=== PATIENT | female | born 1975 | race Caucasian/White ===

== ENCOUNTER 2017-03-30 20:14 | Inpatient (IN) | payer OTHER ==
[2017-03-30] MEDS ORDERED: HYDROmorphone 1 MG/ML Syringe IVPUSH ONE (21:37)
[2017-03-30] MEDS ORDERED: Ondansetron 4 MG/2 ML SDV IVPUSH ONE ×2 (21:37→22:29)
[2017-03-30] MEDS ORDERED: Sodium Chloride 0.9% 1,000 ML IV SCH (21:45)
[2017-03-30] MEDS ORDERED: Diatrizoate Meglumine/Diatrizoate Sodium 37% 120 ML Bottle PO ONE (22:48)
[2017-03-30] MEDS ORDERED: Iopamidol 612 MG/ML 150 ML Bottle IVPUSH ONE (22:48)
[2017-03-30] MEDS ORDERED: cefOXitin 2 GM in Premix Bag 1 BAG IV ONE (23:51)
[2017-03-30] MEDS ORDERED: metroNIDAZOLE/Normal Saline 500 MG in Premix Bag 1 BAG IV ONE (23:52)
--- NOTE | 2017-03-30 23:52 | EDM.PDOC ---
ED HPI GENERAL MEDICAL PROBLEM - General Chief Complaint: Abdominal Pain Stated Complaint: RIGHT SIDE PAIN Time Seen by Provider: 03/30/17 20:43 Source of Information: Reports: Patient, Family (), RN Notes Reviewed History Limitations: Reports: No Limitations - History of Present Illness INITIAL COMMENTS - FREE TEXT/NARRATIVE: The patient states that she developed right flank and far right side abdominal pain around 05:30 this morning. It came on gradually, but has been progressively getting worse. It is crampy in character. It is constant, and the patient has not identified any modifiers. The patient has not had a fever, but has had chills. She has had both nausea and emesis, but no constipation or diarrhea. No urinary symptoms. No prior similar symptoms. The patient has not tried any home treatments or remedies. No medical evaluation prior to this ED visit. The patient's last oral solid intake was around 12 Noon today. Her last oral fluid intake was around 19:00 tonight. The patient's PCP is Linda Pham. Right Lower Abdomen Pain Score (Numeric/FACES): 10 - Related Data Allergies Allergy/AdvReac Type Severity Reaction Status Date / Time No Known Allergies Allergy Verified 03/30/17 20:28 Home Meds: Home Meds Citalopram [Celexa] 20 mg PO DAILY 03/30/17 [History] traMADol [Ultram] 50 mg PO ASDIRECTED PRN 03/30/17 [History] Past Medical History Genitourinary History: Reports: Urinary Incontinence (Stress incontinence) [facility] History: Reports: Other (See Below) (Ovarian cysts) Psychiatric History: Reports: Anxiety, Depression Endocrine/Metabolic History: Reports: Obesity/BMI 30+ - Past Surgical History HEENT Surgical History: Reports: Oral Surgery ([place] teeth extraction) Female Surgical History: Reports: Section (x 1), Salpingo- Oophorectomy (right), Tubal Ligation Social & Family History - Tobacco Use Smoking Status *Q: Never Smoker Second Hand Smoke Exposure: No - Caffeine Use Caffeine Use: Reports: Coffee, Soda - Alcohol Use Alcohol Use History: No - Recreational Drug Use Recreational Drug Use: No - Living Situation & Occupation Living situation: Reports: , with Spouse Occupation: Unemployed ED ROS GENERAL - Review of Systems Review Of Systems: See Below Constitutional: Reports: No Symptoms HEENT: Reports: No Symptoms Respiratory: Reports: No Symptoms Cardiovascular: Reports: No Symptoms Endocrine: Reports: No Symptoms GI/Abdominal: Reports: No Symptoms : Reports: No Symptoms Musculoskeletal: Reports: No Symptoms Skin: Reports: No Symptoms Neurological: Reports: No Symptoms Psychiatric: Reports: No Symptoms Hematologic/Lymphatic: Reports: No Symptoms Immunologic: Reports: No Symptoms ED EXAM, GI/ABD - Physical Exam Exam: See Below Exam Limited By: No Limitations General Appearance: Alert, WD/WN, No Apparent Distress Eyes: Bilateral: Normal Appearance, EOMI Ears: Normal External Exam, Hearing Grossly Normal Nose: Normal Inspection, No Blood Throat/Mouth: Normal Inspection, Normal Lips, Normal Voice, No Airway Compromise Head: Atraumatic, Normocephalic Neck: Normal Inspection, Full Range of Motion Respiratory/Chest: No Respiratory Distress, Lungs Clear, Normal Breath Sounds, No Accessory Muscle Use Cardiovascular: Normal Peripheral Pulses, Regular Rate, Rhythm, No Gallop, No JVD, No Murmur, No Rub GI/Abdominal Exam: Normal Bowel Sounds, Soft, No Organomegaly, No Distention, No Abnormal Bruit, No Mass, Pelvis Stable, Tender (Significant tenderness in the far right abdomen. Less tender in the right upper quadrant, and even less tender in the right lower quadrant. Nontender elsewhere.), Other (Obese) (Female) Exam: Deferred Rectal (Female) Exam: Deferred Back Exam: Normal Inspection, Full Range of Motion. No: CVA Tenderness (L), CVA Tenderness (R) Extremities: Normal Inspection, Normal Range of Motion, No Pedal Edema, Normal Capillary Refill Neurological: Alert, Oriented, Normal Cognition, No Motor/Sensory Deficits Psychiatric: Normal Affect Skin Exam: Warm, Dry, Intact, Normal Color, No Rash Course - Vital Signs Last Recorded V/S: Last Vital Signs Temp 37.0 C 03/30/17 20:24 Pulse 110 H 03/30/17 20:24 Resp 18 03/30/17 20:24 BP 133/87 03/30/17 20:24 Pulse Ox 100 03/30/17 20:24 - Orders/Labs/Meds Orders: Active Orders 24 hr Category Date Time Status Abdomen Pelvis w Cont [CT] Stat Exams 03/30/17 21:38 Taken Sodium Chloride 0.9% [Normal Saline] 1,000 ml Med 03/30/17 21:45 Active IV ASDIRECTED cefOXitin [Mefoxin in Dextrose,Iso-Osm 2 GM/50 ML] 2 gm Med 03/30/17 23:51 Ordered Premix Bag 1 bag IV ONETIME metroNIDAZOLE/Normal Saline [Flagyl 500 MG in NS 100 ML Med 03/30/17 23:52 Ordered ] 500 mg Premix Bag 1 bag IV ONETIME Medication Orders Sodium Chloride (Normal Saline) 1,000 mls @ 150 mls/hr IV ASDIRECTED SANGITA Last Admin: 03/30/17 21:47 Dose: 150 mls/hr Cefoxitin Sodium 2 gm/ Premix 50 mls @ 100 mls/hr IV ONETIME ONE Stop: 03/31/17 00:20 Metronidazole 500 mg/ Premix 100 mls @ 100 mls/hr IV ONETIME ONE Stop: 03/31/17 00:51 Labs: Laboratory Tests 03/30/17 03/30/17 03/30/17 Range/Units 20:30 20:30 20:30 WBC 13.37 H (3.98-10.04) K/mm3 RBC 4.84 (3.98-5.22) M/mm3 Hgb 13.8 (11.2-15.7) gm/L Hct 41.1 (34.1-44.9) % MCV 84.9 (79.4-94.8) fl MCH 28.5 (25.6-32.2) pg MCHC 33.6 (32.2-35.5) g/dl RDW Std Deviation 40.3 (36.4-46.3) fL Plt Count 426 H (182-369) K/mm3 MPV 8.7 L (9.4-12.3) fl Neutrophils % (Manual) 78 H (40-60) % Band Neutrophils % 0 (0-10) % Lymphocytes % (Manual) 16 L (20-40) % Atypical Lymphs % 0 % Monocytes % (Manual) 5 (2-10) % Eosinophils % (Manual) 1 (0.7-5.8) % Basophils % (Manual) 0 L (0.1-1.2) Platelet Estimate Increased Plt Morphology Comment Normal RBC Morph Comment Normal Sodium 137 (136-145) mEq/L Potassium 3.9 (3.5-5.1) mEq/L Chloride 102 (98-107) mEq/L Carbon Dioxide 26 (21-32) mEq/L Anion Gap 12.9 (5-15) BUN 8 (7-18) mg/dL Creatinine 0.8 (0.55-1.02) mg/dL Est Cr Clr Drug Dosing 71.71 mL/min Estimated GFR (MDRD) > 60 (>60) mL/min BUN/Creatinine Ratio 10.0 L (14-18) Glucose 121 H (74-106) mg/dL Calcium 9.3 (8.5-10.1) mg/dL Total Bilirubin 0.4 (0.2-1.0) mg/dL AST 31 (15-37) U/L ALT 34 (14-59) U/L Alkaline Phosphatase 136 H (46-116) U/L Total Protein 8.1 (6.4-8.2) g/dl Albumin 3.9 (3.4-5.0) g/dl Globulin 4.2 gm/dL Albumin/Globulin Ratio 0.9 L (1-2) Lipase 110 (73-393) U/L Urine Color (Yellow) Urine Appearance (Clear) Urine pH (5.0-8.0) Ur Specific Ridge (1.005-1.030) Urine Protein (Negative) Urine Glucose (UA) (Negative) Urine Ketones (Negative) Urine Occult Blood (Negative) Urine Nitrite (Negative) Urine Bilirubin (Negative) Urine Urobilinogen (0.2-1.0) Ur Leukocyte Esterase (Negative) Urine RBC (0-5) /hpf Urine WBC (0-5) /hpf Ur Epithelial Cells (0-5) /hpf Urine Bacteria (FEW) /hpf Urine Mucus (FEW) /hpf Urine HCG, Qual (NEGATIVE) 03/30/17 03/30/17 Range/Units 20:55 20:55 WBC (3.98-10.04) K/mm3 RBC (3.98-5.22) M/mm3 Hgb (11.2-15.7) gm/L Hct (34.1-44.9) % MCV (79.4-94.8) fl MCH (25.6-32.2) pg MCHC (32.2-35.5) g/dl RDW Std Deviation (36.4-46.3) fL Plt Count (182-369) K/mm3 MPV (9.4-12.3) fl Neutrophils % (Manual) (40-60) % Band Neutrophils % (0-10) % Lymphocytes % (Manual) (20-40) % Atypical Lymphs % % Monocytes % (Manual) (2-10) % Eosinophils % (Manual) (0.7-5.8) % Basophils % (Manual) (0.1-1.2) Platelet Estimate Plt Morphology Comment RBC Morph Comment Sodium (136-145) mEq/L Potassium (3.5-5.1) mEq/L Chloride (98-107) mEq/L Carbon Dioxide (21-32) mEq/L Anion Gap (5-15) BUN (7-18) mg/dL Creatinine (0.55-1.02) mg/dL Est Cr Clr Drug Dosing mL/min Estimated GFR (MDRD) (>60) mL/min BUN/Creatinine Ratio (14-18) Glucose (74-106) mg/dL Calcium (8.5-10.1) mg/dL Total Bilirubin (0.2-1.0) mg/dL AST (15-37) U/L ALT (14-59) U/L Alkaline Phosphatase (46-116) U/L Total Protein (6.4-8.2) g/dl Albumin (3.4-5.0) g/dl Globulin gm/dL Albumin/Globulin Ratio (1-2) Lipase (73-393) U/L Urine Color Yellow (Yellow) Urine Appearance Clear (Clear) Urine pH 5.5 (5.0-8.0) Ur Specific [place] > or = 1.030 (1.005-1.030) Urine Protein Negative (Negative) Urine Glucose (UA) Negative (Negative) Urine Ketones Negative (Negative) Urine Occult Blood Trace-lysed H (Negative) Urine Nitrite Negative (Negative) Urine Bilirubin Negative (Negative) Urine Urobilinogen 0.2 (0.2-1.0) Ur Leukocyte Esterase Negative (Negative) Urine RBC 0-5 (0-5) /hpf Urine WBC 0-5 (0-5) /hpf Ur Epithelial Cells 30-40 H (0-5) /hpf Urine Bacteria Few (FEW) /hpf Urine Mucus Not seen (FEW) /hpf Urine HCG, Qual Negative (NEGATIVE) Meds: Medications Generic Name Dose Route Start Last Admin Trade Name Freq PRN Reason Stop Dose Admin Sodium Chloride 1,000 mls @ 150 mls/hr 03/30/17 21:45 03/30/17 21:47 Normal Saline IV 150 mls/hr ASDIRECTED SANGITA Administration Cefoxitin Sodium 2 gm/ Premix 50 mls @ 100 mls/hr 03/30/17 23:51 IV 03/31/17 00:20 ONETIME ONE Metronidazole 500 mg/ Premix 100 mls @ 100 mls/hr 03/30/17 23:52 IV 03/31/17 00:51 ONETIME ONE Discontinued Medications Generic Name Dose Route Start Last Admin Trade Name Baldev PRN Reason Stop Dose Admin Diatrizoate Meglum/Diatrizoate Sod 90 ml 03/30/17 22:48 03/30/17 23:13 Gastrografin 37% PO 03/30/17 22:49 90 ml ONETIME ONE Administration Hydromorphone HCl 1 mg 03/30/17 21:37 03/30/17 21:51 Dilaudid IVPUSH 03/30/17 21:38 1 mg ONETIME ONE Administration Iopamidol 125 ml 03/30/17 22:48 03/30/17 23:13 Isovue-300 (61%) IVPUSH 03/30/17 22:49 125 ml ONETIME ONE Administration Ondansetron HCl 4 mg 03/30/17 21:37 03/30/17 21:47 Zofran IVPUSH 03/30/17 21:38 4 mg ONETIME ONE Administration Ondansetron HCl 4 mg 03/30/17 22:29 03/30/17 22:33 Zofran IVPUSH 03/30/17 22:30 4 mg ONETIME ONE Administration - Re-Assessments/Exams Free Text/Narrative Re-Assessment/Exam: 03/30/17 23:48 CT of the abdomen and pelvis with oral and IV contrast is read by [facility] as "Appendicitis." 03/30/17 23:[address] Camacho at 23:49. He would like us to give the patient Mefoxin 2 g and Flagyl 500 mg now, and call the OR crew in. 03/30/17 23:55 The above was discussed with the patient and her . The patient is agreeable to going to the OR with Dr. Camacho. Departure - Departure Time of Disposition: 00:03 Disposition: DC/Tfer to [facility] Condition: Fair Clinical Impression: Acute appendicitis - Discharge Information - My Orders Last 24 Hours: My Active Orders 03/30/17 21:38 Abdomen Pelvis w Cont [CT] Stat 03/30/17 21:45 Sodium Chloride 0.9% [Normal Saline] 1,000 ml IV ASDIRECTED 03/30/17 23:51 cefOXitin [Mefoxin in Dextrose,Iso-Osm 2 GM/50 ML] 2 gm Premix Bag 1 bag IV ONETIME 03/30/17 23:52 metroNIDAZOLE/Normal Saline [Flagyl 500 MG in NS 100 ML] 500 mg Premix Bag 1 bag IV ONETIME - Assessment/Plan Last 24 Hours: My Active Orders 03/30/17 21:38 Abdomen Pelvis w Cont [CT] Stat 03/30/17 21:45 Sodium Chloride 0.9% [Normal Saline] 1,000 ml IV ASDIRECTED 03/30/17 23:51 cefOXitin [Mefoxin in Dextrose,Iso-Osm 2 GM/50 ML] 2 gm Premix Bag 1 bag IV ONETIME 03/30/17 23:52 metroNIDAZOLE/Normal Saline [Flagyl 500 MG in NS 100 ML] 500 mg Premix Bag 1 bag IV ONETIME
[2017-03-31] MEDS ORDERED: Lactated Ringers 1,000 ML IV SCH
[2017-03-31] MEDS ORDERED: Bupivacaine 0.5% 30 ML SDV ONE (00:14)
--- NOTE | 2017-03-31 00:17 | PCM.PREANE ---
Preanesthetic Assessment - Anesthesia/Transfusion/Family Hx Anesthesia History: Prior Anesthesia Without Reaction Type of Anesthesia Reaction: Excessive Nausea/Vomiting Family History of Anesthesia Reaction: No Transfusion History: No Prior Transfusion(s) Intubation History: Unknown - Review of Systems General: No Symptoms, Chills Pulmonary: No Symptoms Cardiovascular: No Symptoms, Palpitations (anxiety), Lightheadedness Gastrointestinal: Decreased Appetite, Diarrhea, Nausea, Vomiting Neurological: No Symptoms (motion sickness), Numbness (bilateral hands) Other: Reports: None - Physical Assessment NPO Status Date: 03/30/17 NPO Status Time: 19:00 Pulse: 110 O2 Sat by Pulse Oximetry: 100 Respiratory Rate: 18 Blood Pressure: 133/87 Temperature: 37 C Vital Signs: Last Vital Signs Temp 37.0 C 03/30/17 20:24 Pulse 110 H 03/30/17 20:24 Resp 18 03/30/17 20:24 BP 133/87 03/30/17 20:24 Pulse Ox 100 03/30/17 20:24 Height: 1.57 m Weight: 88.451 kg ASA Class: 1E Mental Status: Alert & Oriented x3 Airway Class: Mallampati = 2 Dentition: Reports: Normal Dentition, Caries Thyro-Mental Finger Breadths: 3 Mouth Opening Finger Breadths: 3 ROM/Head Extension: Full Lungs: Clear to Auscultation, Normal Respiratory Effort Cardiovascular: Regular Rate, Regular Rhythm, No Murmurs - Lab Values: Laboratory Last Values WBC 13.37 K/mm3 (3.98-10.04) H 03/30/17 20:30 RBC 4.84 M/mm3 (3.98-5.22) 03/30/17 20:30 Hgb 13.8 gm/L (11.2-15.7) 03/30/17 20:30 Hct 41.1 % (34.1-44.9) 03/30/17 20:30 MCV 84.9 fl (79.4-94.8) 03/30/17 20:30 MCH 28.5 pg (25.6-32.2) 03/30/17 20:30 MCHC 33.6 g/dl (32.2-35.5) 03/30/17 20:30 RDW Std Deviation 40.3 fL (36.4-46.3) 03/30/17 20:30 Plt Count 426 K/mm3 (182-369) H 03/30/17 20:30 MPV 8.7 fl (9.4-12.3) L 03/30/17 20:30 Neutrophils % (Manual) 78 % (40-60) H 03/30/17 20:30 Band Neutrophils % 0 % (0-10) 03/30/17 20:30 Lymphocytes % (Manual) 16 % (20-40) L 03/30/17 20:30 Atypical Lymphs % 0 % 03/30/17 20:30 Monocytes % (Manual) 5 % (2-10) 03/30/17 20:30 Eosinophils % (Manual) 1 % (0.7-5.8) 03/30/17 20:30 Basophils % (Manual) 0 (0.1-1.2) L 03/30/17 20:30 Platelet Estimate Increased 03/30/17 20:30 Plt Morphology Comment Normal 03/30/17 20:30 RBC Morph Comment Normal 03/30/17 20:30 Sodium 137 mEq/L (136-145) 03/30/17 20:30 Potassium 3.9 mEq/L (3.5-5.1) 03/30/17 20:30 Chloride 102 mEq/L (98-107) 03/30/17 20:30 Carbon Dioxide 26 mEq/L (21-32) 03/30/17 20:30 Anion Gap 12.9 (5-15) 03/30/17 20:30 BUN 8 mg/dL (7-18) 03/30/17 20:30 Creatinine 0.8 mg/dL (0.55-1.02) 03/30/17 20:30 Est Cr Clr Drug Dosing 71.71 mL/min 03/30/17 20:30 Estimated GFR (MDRD) > 60 mL/min (>60) 03/30/17 20:30 BUN/Creatinine Ratio 10.0 (14-18) L 03/30/17 20:30 Glucose 121 mg/dL (74-106) H 03/30/17 20:30 Calcium 9.3 mg/dL (8.5-10.1) 03/30/17 20:30 Total Bilirubin 0.4 mg/dL (0.2-1.0) 03/30/17 20:30 AST 31 U/L (15-37) 03/30/17 20:30 ALT 34 U/L (14-59) 03/30/17 20:30 Alkaline Phosphatase 136 U/L (46-116) H 03/30/17 20:30 Total Protein 8.1 g/dl (6.4-8.2) 03/30/17 20:30 Albumin 3.9 g/dl (3.4-5.0) 03/30/17 20:30 Globulin 4.2 gm/dL 03/30/17 20:30 Albumin/Globulin Ratio 0.9 (1-2) L 03/30/17 20:30 Lipase 110 U/L (73-393) 03/30/17 20:30 Urine Color Yellow (Yellow) 03/30/17 20:55 Urine Appearance Clear (Clear) 03/30/17 20:55 Urine pH 5.5 (5.0-8.0) 03/30/17 20:55 Ur Specific [place] > or = 1.030 (1.005-1.030) 03/30/17 20:55 Urine Protein Negative (Negative) 03/30/17 20:55 Urine Glucose (UA) Negative (Negative) 03/30/17 20:55 Urine Ketones Negative (Negative) 03/30/17 20:55 Urine Occult Blood Trace-lysed (Negative) H 03/30/17 20:55 Urine Nitrite Negative (Negative) 03/30/17 20:55 Urine Bilirubin Negative (Negative) 03/30/17 20:55 Urine Urobilinogen 0.2 (0.2-1.0) 03/30/17 20:55 Ur Leukocyte Esterase Negative (Negative) 03/30/17 20:55 Urine RBC 0-5 /hpf (0-5) 03/30/17 20:55 Urine WBC 0-5 /hpf (0-5) 03/30/17 20:55 Ur Epithelial Cells 30-40 /hpf (0-5) H 03/30/17 20:55 Urine Bacteria Few /hpf (FEW) 03/30/17 20:55 Urine Mucus Not seen /hpf (FEW) 03/30/17 20:55 Urine HCG, Qual Negative (NEGATIVE) 03/30/17 20:55 Above labs reviewed and noted. - Allergies Allergies/Adverse Reactions: Allergies Allergy/AdvReac Type Severity Reaction Status Date / Time No Known Allergies Allergy Verified 03/30/17 20:28 - Anesthesia Plan Pre-Op Medication Ordered: None - Acknowledgements Anesthesia Type Planned: General Anesthesia Pt an Appropriate Candidate for the Planned Anesthesia: Yes Alternatives and Risks of Anesthesia Discussed w Pt/Guardian: Yes Pt/Guardian Understands and Agrees with Anesthesia Plan: Yes PreAnesthesia Questionnaire Genitourinary History: Reports: Urinary Incontinence (Stress incontinence) [employer] History: Reports: Other (See Below) (Ovarian cysts) Psychiatric History: Reports: Anxiety, Depression Endocrine/Metabolic History: Reports: Obesity/BMI 30+ - Past Surgical History HEENT Surgical History: Reports: Oral Surgery ([place] teeth extraction) Female Surgical History: Reports: Section (x 1), Salpingo- Oophorectomy (right), Tubal Ligation - SUBSTANCE USE Smoking Status *Q: Never Smoker Second Hand Smoke Exposure: No Recreational Drug Use History: No - HOME MEDS Home Medications: Home Meds Citalopram [Celexa] 20 mg PO DAILY 03/30/17 [History] traMADol [Ultram] 50 mg PO ASDIRECTED PRN 03/30/17 [History] - CURRENT (IN HOUSE) MEDS Current Meds: Current Medications Sodium Chloride (Normal Saline) 1,000 mls @ 150 mls/hr IV ASDIRECTED [facility] Last Admin: 03/30/17 21:47 Dose: 150 mls/hr Cefoxitin Sodium 2 gm/ Premix 50 mls @ 100 mls/hr IV ONETIME ONE Stop: 03/31/17 00:20 Metronidazole 500 mg/ Premix 100 mls @ 100 mls/hr IV ONETIME ONE Stop: 03/31/17 00:51 Lactated Ringer's (Ringers, Lactated) 1,000 mls @ 999 mls/hr IV ASDIRECTED [facility] Discontinued Medications Diatrizoate Meglum/Diatrizoate Sod (Gastrografin 37%) 90 ml PO ONETIME ONE Stop: 03/30/17 22:49 Last Admin: 03/30/17 23:13 Dose: 90 ml Hydromorphone HCl (Dilaudid) 1 mg IVPUSH ONETIME ONE Stop: 03/30/17 21:38 Last Admin: 03/30/17 21:51 Dose: 1 mg Iopamidol (Isovue-300 (61%)) 125 ml IVPUSH ONETIME ONE Stop: 03/30/17 22:49 Last Admin: 03/30/17 23:13 Dose: 125 ml Ondansetron HCl (Zofran) 4 mg IVPUSH ONETIME ONE Stop: 03/30/17 21:38 Last Admin: 03/30/17 21:47 Dose: 4 mg Ondansetron HCl (Zofran) 4 mg IVPUSH ONETIME ONE Stop: 03/30/17 22:30 Last Admin: 03/30/17 22:33 Dose: 4 mg
[2017-03-31] MEDS ORDERED: Rocuronium 50 MG/5 ML Vial ONE (00:46)
[2017-03-31] MEDS ORDERED: Succinylcholine 200 MG/10 ML MDV ONE (00:46)
[2017-03-31] MEDS ORDERED: Ketorolac 30 MG/ML SDV ONE (00:46)
[2017-03-31] MEDS ORDERED: Lactated Ringers 1,000 ML ONE (00:46)
[2017-03-31] MEDS ORDERED: Dexamethasone 4 MG/ML 5 ML MDV ONE (00:46)
[2017-03-31] MEDS ORDERED: Ondansetron 4 MG/2 ML SDV ONE (00:46)
[2017-03-31] MEDS ORDERED: Lidocaine 1% 4 ML ONE (00:46)
[2017-03-31] MEDS ORDERED: fentaNYL 250 MCG/5 ML SDV ONE (00:47)
[2017-03-31] MEDS ORDERED: Propofol 200 MG/20 ML SDV ONE (00:47)
[2017-03-31] MEDS ORDERED: Midazolam 1 MG/ML 2 ML SDV ONE (00:47)
[2017-03-31] MEDS ORDERED: Scopolamine 1.5 MG Transdermal Patch TRDERM ONE (01:00)
[2017-03-31] MEDS ORDERED: HYDROmorphone 0.5 MG/0.5 ML Syringe IVPUSH PRN (01:14)
[2017-03-31] MEDS ORDERED: diphenhydrAMINE 50 MG/ML SDV IVPUSH PRN (01:14)
[2017-03-31] MEDS ORDERED: Midazolam 1 MG/ML 2 ML SDV IVPUSH PRN (01:14)
[2017-03-31] MEDS ORDERED: Ondansetron 4 MG/2 ML SDV IVPUSH PRN ×2 (01:14→03:04)
[2017-03-31] MEDS ORDERED: fentaNYL 100 MCG/2 ML SDV IVPUSH PRN (01:14)
[2017-03-31] MEDS ORDERED: Phenylephrine 1 MG in Sodium Chloride 0.9% 10 ML IV SCH (01:15)
[2017-03-31] MEDS ORDERED: Neostigmine Methylsulfate 1 MG/ML 5 ML Syringe ONE (01:46)
[2017-03-31] MEDS ORDERED: fentaNYL 100 MCG/2 ML SDV ONE (02:31)
[2017-03-31] MEDS ORDERED: HYDROmorphone 1 MG/ML Syringe ONE (02:54)
--- NOTE | 2017-03-31 02:58 | PCM.OPNOTE ---
- General Post-Op/Procedure Note Date of Surgery/Procedure: 03/31/17 Operative Procedure(s): lap appy Findings: ruptured appendix in retrocecal position with abscess Pre Op Diagnosis: acute appendicitis Post-Op Diagnosis: Same Anesthesia Technique: MAC Primary Surgeon: Adriel Camacho EBL in mLs: 15 Complications: None Condition: Good
--- NOTE | 2017-03-31 03:06 | PCM.POSTAN ---
POST ANESTHESIA ASSESSMENT - MENTAL STATUS Mental Status: Alert - VITAL SIGNS Pulse Rate: 118 SaO2: 93 Resp Rate: 17 Blood Pressure: 128/80 Temperature: 36.5 C - RESPIRATORY Respiratory Status: Respiratory Rate WNL, Airway Patent, O2 Saturation Stable, Supplemental Oxygen - CARDIOVASCULAR CV Status: Pulse Rate WNL, Blood Pressure Stable - GASTROINTESTINAL GI Status: No Symptoms - POST OP HYDRATION Hydration Status: Adequate & Stable
[2017-03-31] MEDS ORDERED: cefOXitin 1 GM in Premix Bag 1 BAG IV SCH (03:30)
--- NOTE | 2017-03-31 03:55 | HP ---
DATE OF ADMISSION: 03/31/2017 HISTORY OF PRESENT ILLNESS: The patient is a 41-year-old who presented to the emergency room with pain in the right lower quadrant and CT scan was done showing acute appendicitis. The patient states that about 5:30 this morning, she developed pain and it increased in intensity associated with loss of appetite, nausea, and vomiting. Some feeling of coldness. The CT scan showed a retrocecal appendix. She has never had this problem before and has had in the past, ovarian cyst in 2000 too and a . PAST MEDICAL HISTORY: Anxiety. CURRENT MEDICATIONS: Per medication reconciliation form. ALLERGIES: None known. SOCIAL HISTORY: No smoking, no drinking. REVIEW OF SYSTEMS: No chest pain, shortness of breath, cough, hoarseness, wheezing, fainting, weakness, numbness, or convulsions. FAMILY HISTORY: Negative. PHYSICAL EXAMINATION: GENERAL: Alert, cooperative male. HEENT: Eyes: Sclerae are white. The extraocular muscle motion normal. Oral cavity: Healthy mucous membrane with mouth and tongue. NECK: Supple. No nodes, no thyromegaly. Trachea midline. LUNGS: Clear. No rales, rhonchi, fremitus, or dullness. HEART: Heart tones are regular rate. No S3, S4, jugular venous distention, or murmurs. ABDOMEN: Soft except for tenderness, guarding in the right lower quadrant. EXTREMITIES: The upper and lower extremities, no angulation deformities. NEUROLOGIC: No sensorineural deficit and cranial nerves III through XII is intact. PSYCHOLOGICAL: She is alert and cooperative. LABORATORY DATA: Shows white count 13,000, platelet count slightly high for 26, and electrolytes are in order. CT scan is read as acute appendicitis. PLAN: For laparoscopic appendectomy. Discussed the procedure, the risks, the complications. They understand and sign the consent. MMODAL /[id number]
[2017-03-31] MEDS ORDERED: metroNIDAZOLE/Normal Saline 500 MG in Premix Bag 1 BAG IV SCH (04:00)
[2017-03-31] MEDS: cefOXitin 1 GM in Premix Bag 1 BAG IV SCH ×3 (06:37→18:56)
[2017-03-31] MEDS: Ketorolac 30 MG/ML SDV IVPUSH PRN ×2 (06:51→19:42)
[2017-03-31] MEDS: metroNIDAZOLE/Normal Saline 500 MG in Premix Bag 1 BAG IV SCH ×2 (08:48→15:04)
[2017-03-31] MEDS: Citalopram 20 MG Tab PO SCH (08:51)
[2017-03-31] MEDS: HYDROmorphone 0.5 MG/0.5 ML Syringe IVPUSH PRN (10:04)
--- NOTE | 2017-03-31 10:38 | PCM.CONSN ---
- General Info Date of Service: 03/31/17 Functional Status: Reports: Pain Controlled - Review of Systems Gastrointestinal: Reports: No Symptoms - Patient Data Vitals - Most Recent: Last Vital Signs Temp 98.1 F 03/31/17 04:14 Pulse 111 H 03/31/17 05:00 Resp 16 03/31/17 04:14 BP 96/52 L 03/31/17 05:00 Pulse Ox 92 L 03/31/17 09:58 Weight - Most Recent: 88.451 kg I&O - Last 24 Hours: Intake & Output 03/30/17 03/31/17 03/31/17 23:59 07:59 15:59 Intake Total 310 Balance 310 Med Orders - Current: Current Medications Citalopram Hydrobromide (Celexa) 20 mg PO DAILY [facility] Last Admin: 03/31/17 08:51 Dose: 20 mg Diphenhydramine HCl (Benadryl) 25 mg IVPUSH Q6H PRN PRN Reason: pruritis Fentanyl (Sublimaze) 50 mcg IVPUSH Q5M PRN PRN Reason: Pain Heparin Sodium (Porcine) (Heparin Sodium) 5,000 units SUBCUT Q12H [facility] Hydromorphone HCl (Dilaudid) 0.5 mg IVPUSH Q15M PRN PRN Reason: severe pain Hydromorphone HCl (Dilaudid) 0.5 mg IVPUSH Q1H PRN PRN Reason: Pain Last Admin: 03/31/17 10:04 Dose: 0.5 mg Phenylephrine HCl 1 mg/ Sodium (Chloride) 10.1 mls @ 1 mls/sec IV TITRATE [facility] PRN Reason: Protocol Cefoxitin Sodium 1 gm/ Premix 50 mls @ 100 mls/hr IV Q6H [facility] Last Admin: 03/31/17 06:37 Dose: 100 mls/hr Metronidazole 500 mg/ Premix 100 mls @ 100 mls/hr IV Q8H [facility] Last Admin: 03/31/17 08:48 Dose: 100 mls/hr Lactated Ringer's (Ringers, Lactated) 1,000 mls @ 100 mls/hr IV ASDIRECTED [facility] Ketorolac Tromethamine (Toradol) 30 mg IVPUSH Q6H PRN PRN Reason: Pain Last Admin: 03/31/17 06:51 Dose: 30 mg Midazolam HCl (Versed 1 Mg/Ml) 2 mg IVPUSH ONETIME PRN PRN Reason: Sedation Ondansetron HCl (Zofran) 4 mg IVPUSH ONETIME PRN PRN Reason: Nausea/Vomiting Last Admin: 03/31/17 04:55 Dose: 4 mg Ondansetron HCl (Zofran) 4 mg IVPUSH Q8H PRN PRN Reason: Nausea Last Admin: 03/31/17 10:14 Dose: 4 mg Discontinued Medications Bupivacaine HCl (Marcaine 0.5%) Confirm Administered Dose 30 ml .ROUTE .STK-MED ONE Stop: 03/31/17 00:15 Last Admin: 03/31/17 01:15 Dose: 12 ml Dexamethasone (Dexamethasone) Confirm Administered Dose 20 mg .ROUTE .STK-MED ONE Stop: 03/31/17 00:47 Diatrizoate Meglum/Diatrizoate Sod (Gastrografin 37%) 90 ml PO ONETIME ONE Stop: 03/30/17 22:49 Last Admin: 03/30/17 23:13 Dose: 90 ml Fentanyl (Sublimaze) Confirm Administered Dose 250 mcg .ROUTE .STK-MED ONE Stop: 03/31/17 00:48 Fentanyl (Sublimaze) Confirm Administered Dose 100 mcg .ROUTE .STK-MED ONE Stop: 03/31/17 02:32 Glycopyrrolate () Confirm Administered Dose 1 mg .ROUTE .STK-MED ONE Stop: 03/31/17 01:47 Hydromorphone HCl (Dilaudid) 1 mg IVPUSH ONETIME ONE Stop: 03/30/17 21:38 Last Admin: 03/30/17 21:51 Dose: 1 mg Hydromorphone HCl (Dilaudid) Confirm Administered Dose 1 mg .ROUTE .STK-MED ONE Stop: 03/31/17 02:55 Sodium Chloride (Normal Saline) 1,000 mls @ 150 mls/hr IV ASDIRECTED [facility] Last Admin: 03/30/17 21:47 Dose: 150 mls/hr Cefoxitin Sodium 2 gm/ Premix 50 mls @ 100 mls/hr IV ONETIME ONE Stop: 03/31/17 00:20 Last Admin: 03/31/17 00:50 Dose: 100 mls/hr Metronidazole 500 mg/ Premix 100 mls @ 100 mls/hr IV ONETIME ONE Stop: 03/31/17 00:51 Last Admin: 03/31/17 00:14 Dose: 100 mls/hr Lactated Ringer's (Ringers, Lactated) 1,000 mls @ 999 mls/hr IV ASDIRECTED [facility] Lidocaine HCl (Xylocaine-Mpf 1%) Confirm Administered Dose 4 mls @ as directed .ROUTE .STK-MED ONE Stop: 03/31/17 00:47 Lactated Ringer's (Ringers, Lactated) Confirm Administered Dose 1,000 mls @ as directed .ROUTE .STK-MED ONE Stop: 03/31/17 00:47 Metronidazole 500 mg/ Premix 100 mls @ 100 mls/hr IV Q8H [facility] Last Admin: 03/31/17 06:59 Dose: Not Given Cefoxitin Sodium 1 gm/ Premix 50 mls @ 100 mls/hr IV Q6H [facility] Last Admin: 03/31/17 04:58 Dose: 100 mls/hr Iopamidol (Isovue-300 (61%)) 125 ml IVPUSH ONETIME ONE Stop: 03/30/17 22:49 Last Admin: 03/30/17 23:13 Dose: 125 ml Ketorolac Tromethamine (Toradol) Confirm Administered Dose 30 mg .ROUTE .STK- MED ONE Stop: 03/31/17 00:47 Midazolam HCl (Versed 1 Mg/Ml) Confirm Administered Dose 2 mg .ROUTE .STK-MED ONE Stop: 03/31/17 00:48 Neostigmine Methylsulfate (Neostigmine) Confirm Administered Dose 5 mg .ROUTE .STK-MED ONE Stop: 03/31/17 01:47 Ondansetron HCl (Zofran) 4 mg IVPUSH ONETIME ONE Stop: 03/30/17 21:38 Last Admin: 03/30/17 21:47 Dose: 4 mg Ondansetron HCl (Zofran) 4 mg IVPUSH ONETIME ONE Stop: 03/30/17 22:30 Last Admin: 03/30/17 22:33 Dose: 4 mg Ondansetron HCl (Zofran) Confirm Administered Dose 4 mg .ROUTE .STK-MED ONE Stop: 03/31/17 00:47 Propofol (Diprivan 20 Ml) Confirm Administered Dose 200 mg .ROUTE .STK-MED ONE Stop: 03/31/17 00:48 Rocuronium [place] (Zemuron) Confirm Administered Dose 50 mg .ROUTE .STK-MED ONE Stop: 03/31/17 00:47 Scopolamine (Transderm-Scop) 1.5 mg TRDERM ONETIME ONE Stop: 03/31/17 01:01 Last Admin: 03/31/17 00:50 Dose: 1.5 mg Succinylcholine Chloride (Quelicin) Confirm Administered Dose 200 mg .ROUTE .STK -MED ONE Stop: 03/31/17 00:47 - Exam GI/Abdominal Exam: Soft, Non-Tender, No Distention Consult PN Assessment/Plan Problem List Initiated/Reviewed/Updated: Yes My Orders Last 24 Hours: My Active Orders 03/31/17 03:00 Ambulate [RC] PER UNIT ROUTINE Turn, Cough, Deep Breathe [RC] .PRN 03/31/17 03:03 HYDROmorphone [Dilaudid] 0.5 mg IVPUSH Q1H PRN 03/31/17 03:04 Ketorolac [Toradol] 30 mg IVPUSH Q6H PRN Ondansetron [Zofran] 4 mg IVPUSH Q8H PRN 03/31/17 03:07 Antiembolic Devices [RC] PER UNIT ROUTINE SCD [Sequential Compression Device] [OM.PC] Routine 03/31/17 06:00 cefOXitin [Mefoxin in Dextrose,Iso-Osm 1 GM/50 ML] 1 gm Premix Bag 1 bag IV Q6H 03/31/17 07:16 Code Status [Resuscitation Status] Routine 03/31/17 08:00 metroNIDAZOLE/Normal Saline [Flagyl 500 MG in NS 100 ML] 500 mg Premix Bag 1 bag IV Q8H 03/31/17 09:00 Citalopram [Celexa] 20 mg PO DAILY 03/31/17 10:30 Lactated Ringers [Ringers, Lactated] 1,000 ml IV ASDIRECTED 03/31/17 21:00 Heparin Sodium 5,000 units SUBCUT Q12HR 03/31/17 Breakfast Clear Liquid Diet [DIET] 04/02/17 07:00 CBC W/O DIFF,HEMOGRAM [HEME] MOTH@0700 04/05/17 07:00 CBC W/O DIFF,HEMOGRAM [HEME] MOTH@69904/09/17 07:00 CBC W/O DIFF,HEMOGRAM [HEME] MOTH@69904/12/17 07:00 CBC W/O DIFF,HEMOGRAM [HEME] MOTH@69904/16/17 07:00 CBC W/O DIFF,HEMOGRAM [HEME] MOTH@00 04/19/17 07:00 CBC W/O DIFF,HEMOGRAM [HEME] MOTH@699 Plan: pt doing better appetite has rturned\ abdomen is softer rectal tube is working ass improved NG out for last 25 hours without any recurrence of abdominal distension ass improved plan start diet
[2017-03-31] MEDS: Lactated Ringers 1,000 ML IV SCH ×2 (11:39→22:10)
--- NOTE | 2017-03-31 16:51 | CT ---
CT abdomen and pelvis Technique: Multiple axial sections were obtained from above the dome of the diaphragm inferiorly through the pubic symphysis. Intravenous and oral contrast was utilized. Delayed images were also obtained through the bladder. Comparison: No prior CT abdomen or pelvis exam is available. Findings: Visualized lung bases show nothing acute. Liver shows no focal parenchymal abnormality. Spleen appears within normal limits. Adrenal glands show no nodule. Pancreas is within normal limits. Gallbladder contains no calcified gallstones. Kidneys show symmetric contrast enhancement. Small low density abnormality felt compatible with a cyst noted within the right kidney measuring about 1.1 cm. Aorta shows no aneurysmal dilatation. No retroperitoneal adenopathy is seen. No pelvic mass or adenopathy is seen. No bowel dilatation is seen. Dilated retrocecal appendix is seen. Surrounding inflammatory change around the appendix is seen. Findings are compatible with appendicitis. No fluid collections are seen at this time. Delayed images show contrast within the distal ureters and within the bladder. Bone window settings were reviewed which appear within normal limits for the patient's age. Impression: 1. Findings compatible with appendicitis. 2. Other incidental finding as noted above. Diagnostic code #5 Agree with preliminary report issued by [employer] ([employer] preliminary report dictated on 03/31/17, 12:33 AM Central Time)
[2017-03-31] MEDS: Heparin Sodium 5,000 Units/ML Vial SUBCUT SCH (19:46)
[2017-04-01] MEDS: cefOXitin 1 GM in Premix Bag 1 BAG IV SCH ×4 (00:01→18:04)
[2017-04-01] MEDS: metroNIDAZOLE/Normal Saline 500 MG in Premix Bag 1 BAG IV SCH ×3 (00:38→15:58)
[2017-04-01] MEDS: Ketorolac 30 MG/ML SDV IVPUSH PRN ×2 (01:53→08:08)
[2017-04-01] MEDS: Lactated Ringers 1,000 ML IV SCH ×2 (08:07→20:58)
[2017-04-01] MEDS: Heparin Sodium 5,000 Units/ML Vial SUBCUT SCH ×2 (08:12→20:54)
[2017-04-01] MEDS: Citalopram 20 MG Tab PO SCH (08:15)
[2017-04-01] MEDS ORDERED: Lactated Ringers 1,000 ML IV SCH (10:15)
--- NOTE | 2017-04-01 13:19 | PCM.SURGPN ---
- General Info Date of Service: 04/01/17 POD#: 2 Functional Status: Reports: Pain Controlled - Review of Systems Pulmonary: Reports: No Symptoms Gastrointestinal: Reports: Other (just begining to have flatus no vomiting or nausea) - Patient Data Vitals - Most Recent: Last Vital Signs Temp 98.8 F 04/01/17 11:56 Pulse 91 04/01/17 11:56 Resp 17 04/01/17 11:56 BP 97/58 L 04/01/17 11:56 Pulse Ox 97 04/01/17 11:56 Weight - Most Recent: 93.497 kg I&O - Last 24 Hours: Intake & Output 03/31/17 04/01/17 04/01/17 23:59 07:59 15:59 Intake Total 4983 1667 340 Output Total 1200 950 Balance 3783 717 340 Med Orders - Current: Current Medications Hydrocodone Bitart/Acetaminophen ([place] 325-5 Mg) 1 tab PO Q6H PRN PRN Reason: Pain Citalopram Hydrobromide (Celexa) 20 mg PO DAILY [facility] Last Admin: 04/01/17 08:15 Dose: 20 mg Heparin Sodium (Porcine) (Heparin Sodium) 5,000 units SUBCUT Q12H [facility] Last Admin: 04/01/17 08:12 Dose: 5,000 units Hydromorphone HCl (Dilaudid) 0.5 mg IVPUSH Q1H PRN PRN Reason: Pain Last Admin: 03/31/17 10:04 Dose: 0.5 mg Cefoxitin Sodium 1 gm/ Premix 50 mls @ 100 mls/hr IV Q6H [facility] Last Admin: 04/01/17 11:56 Dose: 100 mls/hr Metronidazole 500 mg/ Premix 100 mls @ 100 mls/hr IV Q8H [facility] Last Admin: 04/01/17 08:17 Dose: 100 mls/hr Lactated Ringer's (Ringers, Lactated) 1,000 mls @ 100 mls/hr IV ASDIRECTED [facility] Last Infusion: 04/01/17 10:10 Dose: 75 mls/hr Ketorolac Tromethamine (Toradol) 30 mg IVPUSH Q6H PRN PRN Reason: Pain Last Admin: 04/01/17 08:08 Dose: 30 mg Ondansetron HCl (Zofran) 4 mg IVPUSH ONETIME PRN PRN Reason: Nausea/Vomiting Last Admin: 03/31/17 04:55 Dose: 4 mg Ondansetron HCl (Zofran) 4 mg IVPUSH Q8H PRN PRN Reason: Nausea Last Admin: 03/31/17 10:14 Dose: 4 mg Discontinued Medications Bupivacaine HCl (Marcaine 0.5%) Confirm Administered Dose 30 ml .ROUTE .STK-MED ONE Stop: 03/31/17 00:15 Last Admin: 03/31/17 01:15 Dose: 12 ml Dexamethasone (Dexamethasone) Confirm Administered Dose 20 mg .ROUTE .STK-MED ONE Stop: 03/31/17 00:47 Diatrizoate Meglum/Diatrizoate Sod (Gastrografin 37%) 90 ml PO ONETIME ONE Stop: 03/30/17 22:49 Last Admin: 03/30/17 23:13 Dose: 90 ml Diphenhydramine HCl (Benadryl) 25 mg IVPUSH Q6H PRN PRN Reason: pruritis Fentanyl (Sublimaze) Confirm Administered Dose 250 mcg .ROUTE .STK-MED ONE Stop: 03/31/17 00:48 Fentanyl (Sublimaze) 50 mcg IVPUSH Q5M PRN PRN Reason: Pain Fentanyl (Sublimaze) Confirm Administered Dose 100 mcg .ROUTE .STK-MED ONE Stop: 03/31/17 02:32 Glycopyrrolate () Confirm Administered Dose 1 mg .ROUTE .STK-MED ONE Stop: 03/31/17 01:47 Hydromorphone HCl (Dilaudid) 1 mg IVPUSH ONETIME ONE Stop: 03/30/17 21:38 Last Admin: 03/30/17 21:51 Dose: 1 mg Hydromorphone HCl (Dilaudid) 0.5 mg IVPUSH Q15M PRN PRN Reason: severe pain Hydromorphone HCl (Dilaudid) Confirm Administered Dose 1 mg .ROUTE .STK-MED ONE Stop: 03/31/17 02:55 Sodium Chloride (Normal Saline) 1,000 mls @ 150 mls/hr IV ASDIRECTED [facility] Last Admin: 03/30/17 21:47 Dose: 150 mls/hr Cefoxitin Sodium 2 gm/ Premix 50 mls @ 100 mls/hr IV ONETIME ONE Stop: 03/31/17 00:20 Last Admin: 03/31/17 00:50 Dose: 100 mls/hr Metronidazole 500 mg/ Premix 100 mls @ 100 mls/hr IV ONETIME ONE Stop: 03/31/17 00:51 Last Admin: 03/31/17 00:14 Dose: 100 mls/hr Lactated Ringer's (Ringers, Lactated) 1,000 mls @ 999 mls/hr IV ASDIRECTED [facility] Lidocaine HCl (Xylocaine-Mpf 1%) Confirm Administered Dose 4 mls @ as directed .ROUTE .STK-MED ONE Stop: 03/31/17 00:47 Lactated Ringer's (Ringers, Lactated) Confirm Administered Dose 1,000 mls @ as directed .ROUTE .STK-MED ONE Stop: 03/31/17 00:47 Phenylephrine HCl 1 mg/ Sodium (Chloride) 10.1 mls @ 1 mls/sec IV TITRATE [facility] PRN Reason: Protocol Metronidazole 500 mg/ Premix 100 mls @ 100 mls/hr IV Q8H [facility] Last Admin: 03/31/17 06:59 Dose: Not Given Cefoxitin Sodium 1 gm/ Premix 50 mls @ 100 mls/hr IV Q6H [facility] Last Admin: 03/31/17 04:58 Dose: 100 mls/hr Lactated Ringer's (Ringers, Lactated) 1,000 mls @ 75 mls/hr IV ASDIRECTED [facility] Iopamidol (Isovue-300 (61%)) 125 ml IVPUSH ONETIME ONE Stop: 03/30/17 22:49 Last Admin: 03/30/17 23:13 Dose: 125 ml Ketorolac Tromethamine (Toradol) Confirm Administered Dose 30 mg .ROUTE .STK- MED ONE Stop: 03/31/17 00:47 Midazolam HCl (Versed 1 Mg/Ml) Confirm Administered Dose 2 mg .ROUTE .STK-MED ONE Stop: 03/31/17 00:48 Midazolam HCl (Versed 1 Mg/Ml) 2 mg IVPUSH ONETIME PRN PRN Reason: Sedation Neostigmine Methylsulfate (Neostigmine) Confirm Administered Dose 5 mg .ROUTE .STK-MED ONE Stop: 03/31/17 01:47 Ondansetron HCl (Zofran) 4 mg IVPUSH ONETIME ONE Stop: 03/30/17 21:38 Last Admin: 03/30/17 21:47 Dose: 4 mg Ondansetron HCl (Zofran) 4 mg IVPUSH ONETIME ONE Stop: 03/30/17 22:30 Last Admin: 03/30/17 22:33 Dose: 4 mg Ondansetron HCl (Zofran) Confirm Administered Dose 4 mg .ROUTE .STK-MED ONE Stop: 03/31/17 00:47 Propofol (Diprivan 20 Ml) Confirm Administered Dose 200 mg .ROUTE .STK-MED ONE Stop: 03/31/17 00:48 Rocuronium [place] (Zemuron) Confirm Administered Dose 50 mg .ROUTE .STK-MED ONE Stop: 03/31/17 00:47 Scopolamine (Transderm-Scop) 1.5 mg TRDERM ONETIME ONE Stop: 03/31/17 01:01 Last Admin: 03/31/17 00:50 Dose: 1.5 mg Succinylcholine Chloride (Quelicin) Confirm Administered Dose 200 mg .ROUTE .STK -MED ONE Stop: 03/31/17 00:47 - Exam Wound/Incisions: Healing Well GI/Abdominal Exam: Tender (tender in the RLQ with some guarding ) - Problem List Review Problem List Initiated/Reviewed/Updated: Yes - My Orders Last 24 Hours: Active Orders 24 hr Category Date Time Status CBC W/O DIFF,HEMOGRAM [HEME] MOTH@0700 Lab 04/02/17 07:00 Ordered CBC W/O DIFF,HEMOGRAM [HEME] MOTH@0700 Lab 04/05/17 07:00 Ordered CBC W/O DIFF,HEMOGRAM [HEME] MOTH@0700 Lab 04/09/17 07:00 Ordered CBC W/O DIFF,HEMOGRAM [HEME] MOTH@0700 Lab 04/12/17 07:00 Ordered CBC W/O DIFF,HEMOGRAM [HEME] MOTH@0700 Lab 04/16/17 07:00 Ordered CBC W/O DIFF,HEMOGRAM [HEME] MOTH@0700 Lab 04/19/17 07:00 Ordered CBC WITH AUTO DIFF [HEME] Routine Lab 04/02/17 07:00 Ordered Acetaminophen/HYDROcodone [[place] 325-5 MG] Med 04/01/17 13:03 Active 1 tab PO Q6H PRN Heparin Sodium Med 03/31/17 20:00 Active 5,000 units SUBCUT Q12H Medication Orders Hydrocodone Bitart/Acetaminophen ([place] 325-5 Mg) 1 tab PO Q6H PRN PRN Reason: Pain Citalopram Hydrobromide (Celexa) 20 mg PO DAILY [facility] Last Admin: 04/01/17 08:15 Dose: 20 mg Admin: 03/31/17 08:51 Dose: 20 mg Heparin Sodium (Porcine) (Heparin Sodium) 5,000 units SUBCUT Q12H [facility] Last Admin: 04/01/17 08:12 Dose: 5,000 units Admin: 03/31/17 19:46 Dose: 5,000 units Hydromorphone HCl (Dilaudid) 0.5 mg IVPUSH Q1H PRN PRN Reason: Pain Last Admin: 03/31/17 10:04 Dose: 0.5 mg Cefoxitin Sodium 1 gm/ Premix 50 mls @ 100 mls/hr IV Q6H [facility] Last Admin: 04/01/17 11:56 Dose: 100 mls/hr Infusion: 04/01/17 05:47 Dose: 100 mls/hr Admin: 04/01/17 05:17 Dose: 100 mls/hr Infusion: 04/01/17 00:31 Dose: 100 mls/hr Admin: 04/01/17 00:01 Dose: 100 mls/hr Infusion: 03/31/17 19:26 Dose: 100 mls/hr Admin: 03/31/17 18:56 Dose: 100 mls/hr Infusion: 03/31/17 12:09 Dose: 100 mls/hr Admin: 03/31/17 11:39 Dose: 100 mls/hr Infusion: 03/31/17 07:07 Dose: 100 mls/hr Admin: 03/31/17 06:37 Dose: 100 mls/hr Metronidazole 500 mg/ Premix 100 mls @ 100 mls/hr IV Q8H [facility] Last Admin: 04/01/17 08:17 Dose: 100 mls/hr Infusion: 04/01/17 01:38 Dose: 100 mls/hr Admin: 04/01/17 00:38 Dose: 100 mls/hr Infusion: 03/31/17 16:04 Dose: 100 mls/hr Admin: 03/31/17 15:04 Dose: 100 mls/hr Infusion: 03/31/17 09:48 Dose: 100 mls/hr Admin: 03/31/17 08:48 Dose: 100 mls/hr Lactated Ringer's (Ringers, Lactated) 1,000 mls @ 100 mls/hr IV ASDIRECTED [facility] Last Infusion: 04/01/17 10:10 Dose: 75 mls/hr Admin: 04/01/17 08:07 Dose: 100 mls/hr Infusion: 04/01/17 08:07 Dose: 100 mls/hr Admin: 03/31/17 22:10 Dose: 100 mls/hr Infusion: 03/31/17 21:39 Dose: 100 mls/hr Admin: 03/31/17 11:39 Dose: 100 mls/hr Ketorolac Tromethamine (Toradol) 30 mg IVPUSH Q6H PRN PRN Reason: Pain Last Admin: 04/01/17 08:08 Dose: 30 mg Admin: 04/01/17 01:53 Dose: 30 mg Admin: 03/31/17 19:42 Dose: 30 mg Admin: 03/31/17 06:51 Dose: 30 mg Ondansetron HCl (Zofran) 4 mg IVPUSH ONETIME PRN PRN Reason: Nausea/Vomiting Last Admin: 03/31/17 04:55 Dose: 4 mg Ondansetron HCl (Zofran) 4 mg IVPUSH Q8H PRN PRN Reason: Nausea Last Admin: 03/31/17 10:14 Dose: 4 mg - Plan Plan (Free Text/Narrative):: pt is stable VS good but does drop her saturations improving slowly in the 80's on RA abdomen with tenderness and guarding the RLQ ass stable slow improvement plan continue with present treatment since on heparin will stop the SCD
[2017-04-01] MEDS: Acetaminophen/HYDROcodone 325-5 MG Tab PO PRN ×2 (14:33→20:39)
[2017-04-01] MEDS: HYDROmorphone 0.5 MG/0.5 ML Syringe IVPUSH PRN (20:49)
[2017-04-01] MEDS ORDERED: LORazepam 2 MG/ML MDV IVPUSH ONE (21:35)
[2017-04-01] MEDS ORDERED: Albuterol 0.083% 2.5 MG/3 ML Neb Soln NEB PRN (21:39)
[2017-04-01] MEDS ORDERED: Nitroglycerin 0.4 MG Tab.SL SL PRN (21:40)
--- NOTE | 2017-04-02 00:06 | PCM.CONSN ---
- General Info Date of Service: 04/01/17 Admission Dx/Problem (Free Text): 41 year old female post op with ruptured appendix developed CP suddenly; it was described as heavy. Associated with SOB, there was no radiation noted. An ECG as well as cardiac enzymes were done. The ECG was unremarkable; two sets of troponins were negative. A CXr was completed, there was not PNA, however it was strongly suggestive of atelectasis. She denies orthopnea, PND, syncopal, presyncopal episodes, F/C, N/V; in general admits to occasional anxiety but has no other complaints. Functional Status: Reports: Pain Controlled, Tolerating Diet, Ambulating, Urinating - Review of Systems General: Reports: No Symptoms HEENT: Reports: No Symptoms Pulmonary: Reports: No Symptoms Cardiovascular: Reports: Chest Pain Gastrointestinal: Reports: No Symptoms Genitourinary: Reports: No Symptoms Musculoskeletal: Reports: No Symptoms Skin: Reports: No Symptoms Neurological: Reports: No Symptoms Psychiatric: Reports: No Symptoms - Patient Data Vitals - Most Recent: Last Vital Signs Temp 37.7 C 04/01/17 20:09 Pulse 98 04/01/17 20:09 Resp 14 04/01/17 20:09 BP 106/59 L 04/01/17 20:09 Pulse Ox 92 L 04/01/17 20:09 Weight - Most Recent: 93.497 kg I&O - Last 24 Hours: Intake & Output 04/01/17 04/01/17 04/02/17 14:59 22:59 06:59 Intake Total 340 1830 Balance 340 1830 Lab Results Last 24 Hours: Laboratory Results - last 24 hr 04/01/17 Range/Units 21:50 Troponin I < 0.017 (0.00-0.056) ng/mL Med Orders - Current: Current Medications Hydrocodone Bitart/Acetaminophen ([place]to 325-5 Mg) 1 tab PO Q6H PRN PRN Reason: Pain Last Admin: 04/01/17 20:39 Dose: 1 tab Albuterol (Proventil Neb Soln) 2.5 mg NEB Q4HRRT PRN PRN Reason: Shortness of Breath Citalopram Hydrobromide (Celexa) 20 mg PO DAILY [facility] Last Admin: 04/01/17 08:15 Dose: 20 mg Heparin Sodium (Porcine) (Heparin Sodium) 5,000 units SUBCUT Q12H [facility] Last Admin: 04/01/17 20:54 Dose: 5,000 units Hydromorphone HCl (Dilaudid) 0.5 mg IVPUSH Q1H PRN PRN Reason: Pain Last Admin: 04/01/17 20:49 Dose: 0.5 mg Cefoxitin Sodium 1 gm/ Premix 50 mls @ 100 mls/hr IV Q6H [facility] Last Admin: 04/01/17 18:04 Dose: 100 mls/hr Metronidazole 500 mg/ Premix 100 mls @ 100 mls/hr IV Q8H [facility] Last Admin: 04/01/17 15:58 Dose: 100 mls/hr Lactated Ringer's (Ringers, Lactated) 1,000 mls @ 100 mls/hr IV ASDIRECTED [facility] Last Admin: 04/01/17 20:58 Dose: 75 mls/hr Ketorolac Tromethamine (Toradol) 30 mg IVPUSH Q6H PRN PRN Reason: Pain Last Admin: 04/01/17 08:08 Dose: 30 mg Nitroglycerin (Nitrostat) 0.4 mg SL Q5M PRN PRN Reason: Chest Pain Ondansetron HCl (Zofran) 4 mg IVPUSH ONETIME PRN PRN Reason: Nausea/Vomiting Last Admin: 03/31/17 04:55 Dose: 4 mg Ondansetron HCl (Zofran) 4 mg IVPUSH Q8H PRN PRN Reason: Nausea Last Admin: 03/31/17 10:14 Dose: 4 mg Discontinued Medications Bupivacaine HCl (Marcaine 0.5%) Confirm Administered Dose 30 ml .ROUTE .STK-MED ONE Stop: 03/31/17 00:15 Last Admin: 03/31/17 01:15 Dose: 12 ml Dexamethasone (Dexamethasone) Confirm Administered Dose 20 mg .ROUTE .STK-MED ONE Stop: 03/31/17 00:47 Diatrizoate Meglum/Diatrizoate Sod (Gastrografin 37%) 90 ml PO ONETIME ONE Stop: 03/30/17 22:49 Last Admin: 03/30/17 23:13 Dose: 90 ml Diphenhydramine HCl (Benadryl) 25 mg IVPUSH Q6H PRN PRN Reason: pruritis Fentanyl (Sublimaze) Confirm Administered Dose 250 mcg .ROUTE .STK-MED ONE Stop: 03/31/17 00:48 Fentanyl (Sublimaze) 50 mcg IVPUSH Q5M PRN PRN Reason: Pain Fentanyl (Sublimaze) Confirm Administered Dose 100 mcg .ROUTE .STK-MED ONE Stop: 03/31/17 02:32 Glycopyrrolate () Confirm Administered Dose 1 mg .ROUTE .STK-MED ONE Stop: 03/31/17 01:47 Hydromorphone HCl (Dilaudid) 1 mg IVPUSH ONETIME ONE Stop: 03/30/17 21:38 Last Admin: 03/30/17 21:51 Dose: 1 mg Hydromorphone HCl (Dilaudid) 0.5 mg IVPUSH Q15M PRN PRN Reason: severe pain Hydromorphone HCl (Dilaudid) Confirm Administered Dose 1 mg .ROUTE .ST-MED ONE Stop: 03/31/17 02:55 Sodium Chloride (Normal Saline) 1,000 mls @ 150 mls/hr IV ASDIRECTED [facility] Last Admin: 03/30/17 21:47 Dose: 150 mls/hr Cefoxitin Sodium 2 gm/ Premix 50 mls @ 100 mls/hr IV ONETIME ONE Stop: 03/31/17 00:20 Last Admin: 03/31/17 00:50 Dose: 100 mls/hr Metronidazole 500 mg/ Premix 100 mls @ 100 mls/hr IV ONETIME ONE Stop: 03/31/17 00:51 Last Admin: 03/31/17 00:14 Dose: 100 mls/hr Lactated Ringer's (Ringers, Lactated) 1,000 mls @ 999 mls/hr IV ASDIRECTED [facility] Lidocaine HCl (Xylocaine-Mpf 1%) Confirm Administered Dose 4 mls @ as directed .ROUTE .STK-MED ONE Stop: 03/31/17 00:47 Lactated Ringer's (Ringers, Lactated) Confirm Administered Dose 1,000 mls @ as directed .ROUTE .STK-MED ONE Stop: 03/31/17 00:47 Phenylephrine HCl 1 mg/ Sodium (Chloride) 10.1 mls @ 1 mls/sec IV TITRATE [facility]ANG[facility] PRN Reason: Protocol Metronidazole 500 mg/ Premix 100 mls @ 100 mls/hr IV Q8H [facility] Last Admin: 03/31/17 06:59 Dose: Not Given Cefoxitin Sodium 1 gm/ Premix 50 mls @ 100 mls/hr IV Q6H [facility] Last Admin: 03/31/17 04:58 Dose: 100 mls/hr Lactated Ringer's (Ringers, Lactated) 1,000 mls @ 75 mls/hr IV ASDIRECTED [facility] Iopamidol (Isovue-300 (61%)) 125 ml IVPUSH ONETIME ONE Stop: 03/30/17 22:49 Last Admin: 03/30/17 23:13 Dose: 125 ml Ketorolac Tromethamine (Toradol) Confirm Administered Dose 30 mg .ROUTE .STK- MED ONE Stop: 03/31/17 00:47 Lorazepam (Ativan) 1 mg IVPUSH ONETIME ONE Stop: 04/01/17 21:36 Last Admin: 04/01/17 22:24 Dose: 1 mg Midazolam HCl (Versed 1 Mg/Ml) Confirm Administered Dose 2 mg .ROUTE .STK-MED ONE Stop: 03/31/17 00:48 Midazolam HCl (Versed 1 Mg/Ml) 2 mg IVPUSH ONETIME PRN PRN Reason: Sedation Neostigmine Methylsulfate (Neostigmine) Confirm Administered Dose 5 mg .ROUTE .STK-MED ONE Stop: 03/31/17 01:47 Ondansetron HCl (Zofran) 4 mg IVPUSH ONETIME ONE Stop: 03/30/17 21:38 Last Admin: 03/30/17 21:47 Dose: 4 mg Ondansetron HCl (Zofran) 4 mg IVPUSH ONETIME ONE Stop: 03/30/17 22:30 Last Admin: 03/30/17 22:33 Dose: 4 mg Ondansetron HCl (Zofran) Confirm Administered Dose 4 mg .ROUTE .STK-MED ONE Stop: 03/31/17 00:47 Propofol (Diprivan 20 Ml) Confirm Administered Dose 200 mg .ROUTE .STK-MED ONE Stop: 03/31/17 00:48 Rocuronium [place] (Zemuron) Confirm Administered Dose 50 mg .ROUTE .STK-MED ONE Stop: 03/31/17 00:47 Scopolamine (Transderm-Scop) 1.5 mg TRDERM ONETIME ONE Stop: 03/31/17 01:01 Last Admin: 03/31/17 00:50 Dose: 1.5 mg Succinylcholine Chloride (Quelicin) Confirm Administered Dose 200 mg .ROUTE .STK -MED ONE Stop: 03/31/17 00:47 - Exam Quality Assessment: DVT Prophylaxis General: Alert, Oriented, Cooperative, No Acute Distress HEENT: Pupils Equal, Pupils Reactive, EOMI Neck: Supple, Trachea Midline, No JVD Lungs: Clear to Auscultation, Normal Respiratory Effort Cardiovascular: Regular Rate, Regular Rhythm GI/Abdominal Exam: Normal Bowel Sounds, Soft, Non-Tender, No Organomegaly, No Distention (Female) Exam: Deferred Back Exam: Normal Inspection Extremities: Normal Inspection, Normal Range of Motion, Non-Tender, No Pedal Edema Skin: Warm Neurological: No New Focal Deficit Psy/Mental Status: Alert, Normal Affect, Normal Mood Consult PN Assessment/Plan POD#: 2 (1) Acute appendicitis SNOMED Code(s): 31255180 Code(s): K35.80 - UNSPECIFIED ACUTE APPENDICITIS Current Visit: Yes Problem List Initiated/Reviewed/Updated: Yes My Orders Last 24 Hours: My Active Orders 04/01/17 21:33 EKG Documentation Completion [RC] ASDIRECTED EKG 12 Lead [EK] Stat 04/01/17 21:37 Chest 1V Frontal [CR] Routine 04/01/17 21:39 RT Aerosol Therapy [RC] ASDIRECTED Albuterol [Proventil Neb Soln] 2.5 mg NEB Q4HRRT PRN 04/01/17 21:40 Nitroglycerin [Nitrostat] 0.4 mg SL Q5M PRN Plan: Impression: POD 2, S/P appendectomy Chest pain, noncardiac Negative troponin CXR-No PNA; atelectasis Anxiety, nos Plan: Continue current medical mgt IS for atelectasis GI prophylaxis DVT prophylaxis Weight loss, heart healthy habits Lipid panel in am
[2017-04-02] MEDS: cefOXitin 1 GM in Premix Bag 1 BAG IV SCH ×5 (00:44→23:51)
[2017-04-02] MEDS: metroNIDAZOLE/Normal Saline 500 MG in Premix Bag 1 BAG IV SCH ×4 (01:16→23:50)
[2017-04-02] MEDS: Acetaminophen/HYDROcodone 325-5 MG Tab PO PRN ×3 (03:48→22:24)
[2017-04-02] MEDS: Ketorolac 30 MG/ML SDV IVPUSH PRN (03:49)
--- NOTE | 2017-04-02 06:41 | OR ---
DATE OF OPERATION: 03/31/2017 SURGEON: Adriel Camacho MD PREOPERATIVE DIAGNOSIS: Acute appendicitis. POSTOPERATIVE DIAGNOSIS: Acute appendicitis. OPERATION PERFORMED: Laparoscopic appendectomy. FINDINGS: Retrocecal appendix with an abscess cavity indicating rupture. ESTIMATED BLOOD LOSS: About 15 mL. DESCRIPTION OF PROCEDURE: The patient was taken to the operating room, placed in a supine position, connected to monitoring equipment, given a general anesthetic and intubated. SCDs were placed. Antibiotics were given. The abdomen was prepped with DuraPrep and draped off in a sterile fashion. Because of a previous surgery and because of a suspected high-riding appendix, an incision was made above the umbilicus and carried down by sharp dissection to the fascia. This was incised and abdominal cavity entered showing adhesions. The incision was enlarged, and the adhesions were taken down. Dillon trocar was placed, secured with stay sutures, and a pneumoperitoneum established. This was followed by a 30-degree 5- mm camera. The patient was then placed in reverse Trendelenburg with leftward tilt. The appendix was identified in a retrocecal position. The appendix was then dissected first starting at its junction with the cecum. A window was made there and Endo-ligator was placed, the appendix and attachments to the cecum. The appendix was then tented up and dissection was carried along the appendix, where an abscess was entered. Using an Endo suction device, the pus was removed and the area was irrigated. Further dissection was then continued into hard periappendiceal scarring and by careful dissection, this was removed, put in an Endobag, and removed from the abdominal cavity where it was inspected, and all the appendicular parts were accounted for. The camera was reinserted and further inflamed periappendiceal tissue was removed with Endo ligator, and this was then sent also with the appendix. The area was then checked for hemostasis by irrigating and carefully coagulating where appropriate. It was found to be oozing. Surgicel was placed, and the area was quite clean when left. The subhepatic and subdiaphragmatic spaces were irrigated clean. There was no pus in the pelvis. This completed the intraabdominal portion. The ports were removed, and the supraumbilical port fascia was closed in a transverse fashion with a running 0 Vicryl suture starting at either end and meeting in midline. The subcuticular tissue was closed with 3-0 Vicryl suture and jr were used to approximate the skin of all the ports. Marcaine was used to infiltrate the ports. This completed the procedure. The patient tolerated the procedure and was sent to recovery room in a stable condition, and will be admitted because of the ruptured nature of the appendicitis for antibiotics. ANESTHESIA: MMODAL /[id number]
--- NOTE | 2017-04-02 07:52 | CR ---
Chest: Portable view of the chest was obtained. Comparison: No prior chest x-ray is available. Lung bases are partially seen on CT abdomen and pelvis exam of 03/30/17. Heart size and mediastinum are normal. Poor inspiratory effort is seen. Increased density identified within both lung bases most likely representing atelectasis. Lungs otherwise are clear. Bony structures are grossly intact. Impression: 1. Poor inspiratory study. 2. Bibasilar atelectasis. Diagnostic code #3 Agree with preliminary report issued by [facility] ([facility] preliminary report dictated on 04/01/17, 11:25 PM Central Time)
[2017-04-02] MEDS: Citalopram 20 MG Tab PO SCH (09:04)
[2017-04-02] MEDS: Heparin Sodium 5,000 Units/ML Vial SUBCUT SCH (09:04)
[2017-04-02] MEDS ORDERED: Sodium Chloride 0.9% 10 ML Syringe FLUSH PRN (09:37)
--- NOTE | 2017-04-02 09:40 | PCM.SURGPN ---
- General Info Date of Service: 04/02/17 POD#: 3 Functional Status: Reports: Pain Controlled - Review of Systems General: Reports: No Symptoms Pulmonary: Reports: Wheezing Cardiovascular: Reports: No Symptoms Gastrointestinal: Reports: No Symptoms - Patient Data Vitals - Most Recent: Last Vital Signs Temp 98.4 F 04/02/17 03:26 Pulse 94 04/02/17 03:26 Resp 18 04/02/17 03:26 BP 109/56 L 04/02/17 03:26 Pulse Ox 93 L 04/02/17 07:55 Weight - Most Recent: 95.073 kg I&O - Last 24 Hours: Intake & Output 04/01/17 04/02/17 04/02/17 23:59 07:59 15:59 Intake Total 1610 1730 Output Total 400 Balance 1610 1330 Lab Results Last 24 Hrs: Laboratory Results - last 24 hr 04/01/17 04/02/17 04/02/17 Range/Units 21:50 05:24 05:24 WBC 9.88 (3.98-10.04) K/mm3 RBC 3.47 L (3.98-5.22) M/mm3 Hgb 9.8 L (11.2-15.7) gm/L Hct 31.0 L (34.1-44.9) % MCV 89.3 (79.4-94.8) fl MCH 28.2 (25.6-32.2) pg MCHC 31.6 L (32.2-35.5) g/dl RDW Std Deviation 43.3 (36.4-46.3) fL Plt Count 300 (182-369) K/mm3 MPV 8.9 L (9.4-12.3) fl Neut % (Auto) 78.7 H (34.0-71.1) % Lymph % (Auto) 10.8 L (19.3-51.7) % [place] % (Auto) 9.5 (4.7-12.5) % Eos % (Auto) 0.8 (0.7-5.8) Baso % (Auto) 0.1 (0.1-1.2) % Neut # (Auto) 7.77 H (1.56-6.13) K/mm3 Lymph # (Auto) 1.07 L (1.18-3.74) K/mm3 [place] # (Auto) 0.94 H (0.24-0.36) K/mm3 Eos # (Auto) 0.08 (0.04-0.36) K/mm3 Baso # (Auto) 0.01 (0.01-0.08) K/mm3 Troponin I < 0.017 < 0.017 (0.00-0.056) ng/mL Med Orders - Current: Current Medications Hydrocodone Bitart/Acetaminophen (Strawberry 325-5 Mg) 1 tab PO Q6H PRN PRN Reason: Pain Last Admin: 04/02/17 03:48 Dose: 1 tab Albuterol (Proventil Neb Soln) 2.5 mg NEB Q4HRRT PRN PRN Reason: Shortness of Breath Citalopram Hydrobromide (Celexa) 20 mg PO DAILY [facility] Last Admin: 04/02/17 09:04 Dose: 20 mg Hydromorphone HCl (Dilaudid) 0.5 mg IVPUSH Q1H PRN PRN Reason: Pain Last Admin: 04/01/17 20:49 Dose: 0.5 mg Cefoxitin Sodium 1 gm/ Premix 50 mls @ 100 mls/hr IV Q6H [facility] Last Admin: 04/02/17 05:41 Dose: 100 mls/hr Metronidazole 500 mg/ Premix 100 mls @ 100 mls/hr IV Q8H [facility] Last Admin: 04/02/17 09:03 Dose: 100 mls/hr Lactated Ringer's (Ringers, Lactated) 1,000 mls @ 100 mls/hr IV ASDIRECTED [facility] Last Admin: 04/01/17 20:58 Dose: 75 mls/hr Ketorolac Tromethamine (Toradol) 30 mg IVPUSH Q6H PRN PRN Reason: Pain Last Admin: 04/02/17 03:49 Dose: 30 mg Nitroglycerin (Nitrostat) 0.4 mg SL Q5M PRN PRN Reason: Chest Pain Ondansetron HCl (Zofran) 4 mg IVPUSH ONETIME PRN PRN Reason: Nausea/Vomiting Last Admin: 03/31/17 04:55 Dose: 4 mg Ondansetron HCl (Zofran) 4 mg IVPUSH Q8H PRN PRN Reason: Nausea Last Admin: 03/31/17 10:14 Dose: 4 mg Discontinued Medications Bupivacaine HCl (Marcaine 0.5%) Confirm Administered Dose 30 ml .ROUTE .STK-MED ONE Stop: 03/31/17 00:15 Last Admin: 03/31/17 01:15 Dose: 12 ml Dexamethasone (Dexamethasone) Confirm Administered Dose 20 mg .ROUTE .STK-MED ONE Stop: 03/31/17 00:47 Diatrizoate Meglum/Diatrizoate Sod (Gastrografin 37%) 90 ml PO ONETIME ONE Stop: 03/30/17 22:49 Last Admin: 03/30/17 23:13 Dose: 90 ml Diphenhydramine HCl (Benadryl) 25 mg IVPUSH Q6H PRN PRN Reason: pruritis Fentanyl (Sublimaze) Confirm Administered Dose 250 mcg .ROUTE .STK-MED ONE Stop: 03/31/17 00:48 Fentanyl (Sublimaze) 50 mcg IVPUSH Q5M PRN PRN Reason: Pain Fentanyl (Sublimaze) Confirm Administered Dose 100 mcg .ROUTE .STK-MED ONE Stop: 03/31/17 02:32 Glycopyrrolate () Confirm Administered Dose 1 mg .ROUTE .STK-MED ONE Stop: 03/31/17 01:47 Heparin Sodium (Porcine) (Heparin Sodium) 5,000 units SUBCUT Q12H [facility] Last Admin: 04/02/17 09:04 Dose: 5,000 units Hydromorphone HCl (Dilaudid) 1 mg IVPUSH ONETIME ONE Stop: 03/30/17 21:38 Last Admin: 03/30/17 21:51 Dose: 1 mg Hydromorphone HCl (Dilaudid) 0.5 mg IVPUSH Q15M PRN PRN Reason: severe pain Hydromorphone HCl (Dilaudid) Confirm Administered Dose 1 mg .ROUTE .STK-MED ONE Stop: 03/31/17 02:55 Sodium Chloride (Normal Saline) 1,000 mls @ 150 mls/hr IV ASDIRECTED [facility] Last Admin: 03/30/17 21:47 Dose: 150 mls/hr Cefoxitin Sodium 2 gm/ Premix 50 mls @ 100 mls/hr IV ONETIME ONE Stop: 03/31/17 00:20 Last Admin: 03/31/17 00:50 Dose: 100 mls/hr Metronidazole 500 mg/ Premix 100 mls @ 100 mls/hr IV ONETIME ONE Stop: 03/31/17 00:51 Last Admin: 03/31/17 00:14 Dose: 100 mls/hr Lactated Ringer's (Ringers, Lactated) 1,000 mls @ 999 mls/hr IV ASDIRECTED [facility] Lidocaine HCl (Xylocaine-Mpf 1%) Confirm Administered Dose 4 mls @ as directed .ROUTE .STK-MED ONE Stop: 03/31/17 00:47 Lactated Ringer's (Ringers, Lactated) Confirm Administered Dose 1,000 mls @ as directed .ROUTE .STK-MED ONE Stop: 03/31/17 00:47 Phenylephrine HCl 1 mg/ Sodium (Chloride) 10.1 mls @ 1 mls/sec IV TITRATE [facility]ANG[facility] PRN Reason: Protocol Metronidazole 500 mg/ Premix 100 mls @ 100 mls/hr IV Q8H [facility] Last Admin: 03/31/17 06:59 Dose: Not Given Cefoxitin Sodium 1 gm/ Premix 50 mls @ 100 mls/hr IV Q6H [facility] Last Admin: 03/31/17 04:58 Dose: 100 mls/hr Lactated Ringer's (Ringers, Lactated) 1,000 mls @ 75 mls/hr IV ASDIRECTED [facility] Iopamidol (Isovue-300 (61%)) 125 ml IVPUSH ONETIME ONE Stop: 03/30/17 22:49 Last Admin: 03/30/17 23:13 Dose: 125 ml Ketorolac Tromethamine (Toradol) Confirm Administered Dose 30 mg .ROUTE .STK- MED ONE Stop: 03/31/17 00:47 Lorazepam (Ativan) 1 mg IVPUSH ONETIME ONE Stop: 04/01/17 21:36 Last Admin: 04/01/17 22:24 Dose: 1 mg Midazolam HCl (Versed 1 Mg/Ml) Confirm Administered Dose 2 mg .ROUTE .STK-MED ONE Stop: 03/31/17 00:48 Midazolam HCl (Versed 1 Mg/Ml) 2 mg IVPUSH ONETIME PRN PRN Reason: Sedation Neostigmine Methylsulfate (Neostigmine) Confirm Administered Dose 5 mg .ROUTE .STK-MED ONE Stop: 03/31/17 01:47 Ondansetron HCl (Zofran) 4 mg IVPUSH ONETIME ONE Stop: 03/30/17 21:38 Last Admin: 03/30/17 21:47 Dose: 4 mg Ondansetron HCl (Zofran) 4 mg IVPUSH ONETIME ONE Stop: 03/30/17 22:30 Last Admin: 03/30/17 22:33 Dose: 4 mg Ondansetron HCl (Zofran) Confirm Administered Dose 4 mg .ROUTE .STK-MED ONE Stop: 03/31/17 00:47 Propofol (Diprivan 20 Ml) Confirm Administered Dose 200 mg .ROUTE .STK-MED ONE Stop: 03/31/17 00:48 Rocuronium [place] (Zemuron) Confirm Administered Dose 50 mg .ROUTE .STK-MED ONE Stop: 03/31/17 00:47 Scopolamine (Transderm-Scop) 1.5 mg TRDERM ONETIME ONE Stop: 03/31/17 01:01 Last Admin: 03/31/17 00:50 Dose: 1.5 mg Succinylcholine Chloride (Quelicin) Confirm Administered Dose 200 mg .ROUTE .STK -MED ONE Stop: 03/31/17 00:47 - Exam GI/Abdominal Exam: Tender (RUQ) - Problem List Review Problem List Initiated/Reviewed/Updated: Yes - My Orders Last 24 Hours: Active Orders 24 hr Category Date Time Status Antiembolic Devices [RC] PER UNIT ROUTINE Care 04/02/17 09:36 Ordered Notify Provider Consults [RC] ASDIRECTED Care 04/01/17 21:19 Active RT Aerosol Therapy [RC] ASDIRECTED Care 04/01/17 21:39 Active Consult to Physician [CONS] Routine Cons 04/01/17 21:13 Active Regular Diet [DIET] Diet 04/02/17 Lunch Ordered CXR [Chest 2V] [CR] Routine Exams 04/02/17 09:00 Taken CBC W/O DIFF,HEMOGRAM [HEME] MOTH@0700 Lab 04/05/17 07:00 Ordered CBC W/O DIFF,HEMOGRAM [HEME] MOTH@0700 Lab 04/09/17 07:00 Ordered CBC W/O DIFF,HEMOGRAM [HEME] MOTH@0700 Lab 04/12/17 07:00 Ordered CBC W/O DIFF,HEMOGRAM [HEME] MOTH@0700 Lab 04/16/17 07:00 Ordered CBC W/O DIFF,HEMOGRAM [HEME] MOTH@0700 Lab 04/19/17 07:00 Ordered CBC WITH AUTO DIFF [HEME] Routine Lab 04/03/17 07:00 Ordered Acetaminophen/HYDROcodone [Strawberry 325-5 MG] Med 04/01/17 13:03 Active 1 tab PO Q6H PRN Albuterol [Proventil Neb Soln] Med 04/01/17 21:39 Active 2.5 mg NEB Q4HRRT PRN Nitroglycerin [Nitrostat] Med 04/01/17 21:40 Active 0.4 mg SL Q5M PRN Sodium Chloride 0.9% [Saline Flush] Med 04/02/17 09:37 Ordered 10 ml FLUSH ASDIRECTED PRN Convert IV to Saline Lock [OM.PC] Routine Oth 04/02/17 09:37 Ordered SCD [Sequential Compression Device] [OM.PC] Routine Oth 04/02/17 09:36 Ordered EKG 12 Lead [EK] Stat Ther 04/01/17 21:33 Ordered Medication Orders Hydrocodone Bitart/Acetaminophen (Strawberry 325-5 Mg) 1 tab PO Q6H PRN PRN Reason: Pain Last Admin: 04/02/17 03:48 Dose: 1 tab Admin: 04/01/17 20:39 Dose: 1 tab Admin: 04/01/17 14:33 Dose: 1 tab Albuterol (Proventil Neb Soln) 2.5 mg NEB Q4HRRT PRN PRN Reason: Shortness of Breath Citalopram Hydrobromide (Celexa) 20 mg PO DAILY [facility] Last Admin: 04/02/17 09:04 Dose: 20 mg Admin: 04/01/17 08:15 Dose: 20 mg Admin: 03/31/17 08:51 Dose: 20 mg Hydromorphone HCl (Dilaudid) 0.5 mg IVPUSH Q1H PRN PRN Reason: Pain Last Admin: 04/01/17 20:49 Dose: 0.5 mg Admin: 03/31/17 10:04 Dose: 0.5 mg Cefoxitin Sodium 1 gm/ Premix 50 mls @ 100 mls/hr IV Q6H [facility] Last Admin: 04/02/17 05:41 Dose: 100 mls/hr Infusion: 04/02/17 01:14 Dose: 100 mls/hr Admin: 04/02/17 00:44 Dose: 100 mls/hr Infusion: 04/01/17 18:34 Dose: 100 mls/hr Admin: 04/01/17 18:04 Dose: 100 mls/hr Infusion: 04/01/17 12:26 Dose: 100 mls/hr Admin: 04/01/17 11:56 Dose: 100 mls/hr Infusion: 04/01/17 05:47 Dose: 100 mls/hr Admin: 04/01/17 05:17 Dose: 100 mls/hr Infusion: 04/01/17 00:31 Dose: 100 mls/hr Admin: 04/01/17 00:01 Dose: 100 mls/hr Infusion: 03/31/17 19:26 Dose: 100 mls/hr Admin: 03/31/17 18:56 Dose: 100 mls/hr Infusion: 03/31/17 12:09 Dose: 100 mls/hr Admin: 03/31/17 11:39 Dose: 100 mls/hr Infusion: 03/31/17 07:07 Dose: 100 mls/hr Admin: 03/31/17 06:37 Dose: 100 mls/hr Metronidazole 500 mg/ Premix 100 mls @ 100 mls/hr IV Q8H [facility] Last Admin: 04/02/17 09:03 Dose: 100 mls/hr Infusion: 04/02/17 02:16 Dose: 100 mls/hr Admin: 04/02/17 01:16 Dose: 100 mls/hr Infusion: 04/01/17 16:58 Dose: 100 mls/hr Admin: 04/01/17 15:58 Dose: 100 mls/hr Infusion: 04/01/17 09:17 Dose: 100 mls/hr Admin: 04/01/17 08:17 Dose: 100 mls/hr Infusion: 04/01/17 01:38 Dose: 100 mls/hr Admin: 04/01/17 00:38 Dose: 100 mls/hr Infusion: 03/31/17 16:04 Dose: 100 mls/hr Admin: 03/31/17 15:04 Dose: 100 mls/hr Infusion: 03/31/17 09:48 Dose: 100 mls/hr Admin: 03/31/17 08:48 Dose: 100 mls/hr Lactated Ringer's (Ringers, Lactated) 1,000 mls @ 100 mls/hr IV ASDIRECTED [facility] Last Admin: 04/01/17 20:58 Dose: 75 mls/hr Infusion: 04/01/17 20:46 Dose: 75 mls/hr Infusion: 04/01/17 10:10 Dose: 75 mls/hr Admin: 04/01/17 08:07 Dose: 100 mls/hr Infusion: 04/01/17 08:07 Dose: 100 mls/hr Admin: 03/31/17 22:10 Dose: 100 mls/hr Infusion: 03/31/17 21:39 Dose: 100 mls/hr Admin: 03/31/17 11:39 Dose: 100 mls/hr Ketorolac Tromethamine (Toradol) 30 mg IVPUSH Q6H PRN PRN Reason: Pain Last Admin: 04/02/17 03:49 Dose: 30 mg Admin: 04/01/17 08:08 Dose: 30 mg Admin: 04/01/17 01:53 Dose: 30 mg Admin: 03/31/17 19:42 Dose: 30 mg Admin: 03/31/17 06:51 Dose: 30 mg Nitroglycerin (Nitrostat) 0.4 mg SL Q5M PRN PRN Reason: Chest Pain Ondansetron HCl (Zofran) 4 mg IVPUSH ONETIME PRN PRN Reason: Nausea/Vomiting Last Admin: 03/31/17 04:55 Dose: 4 mg Ondansetron HCl (Zofran) 4 mg IVPUSH Q8H PRN PRN Reason: Nausea Last Admin: 03/31/17 10:14 Dose: 4 mg - Plan Plan (Free Text/Narrative):: stable HB down will stop heparin and use scd pt having flatus and hunger plan stop IV and advance dietJMb
--- NOTE | 2017-04-02 11:19 | CR ---
Chest: Two views of the chest were obtained. Comparison: Prior chest x-ray performed earlier on the same day (6:28 AM) Continuing increased density within both lung bases are noted, most likely representing atelectasis. Limited inspiratory study is again noted. Upper lungs are clear. Heart size and mediastinum are normal. Bony structures are unremarkable. Impression: 1. Poor inspiratory study. Continuing bibasilar atelectasis. No significant change is seen from previous chest x-ray. Diagnostic code #3
[2017-04-02] MEDS: Albuterol 0.083% 2.5 MG/3 ML Neb Soln NEB SCH ×2 (16:07→21:44)
--- NOTE | 2017-04-02 16:09 | PCM48HPAN ---
Post Anesthesia Note - EVALUATION WITHIN 48HRS OF ANESTHETIC Vital Signs in Normal Range: Yes Patient Participated in Evaluation: Yes Respiratory Function Stable: Yes Airway Patent: Yes Cardiovascular Function Stable: Yes Hydration Status Stable: Yes Pain Control Satisfactory: Yes Nausea and Vomiting Control Satisfactory: Yes Mental Status Recovered: Yes
[2017-04-03] MEDS: cefOXitin 1 GM in Premix Bag 1 BAG IV SCH ×2 (05:33→11:13)
[2017-04-03] MEDS: Albuterol 0.083% 2.5 MG/3 ML Neb Soln NEB SCH ×2 (06:28→13:13)
[2017-04-03] MEDS: metroNIDAZOLE/Normal Saline 500 MG in Premix Bag 1 BAG IV SCH (08:25)
[2017-04-03] MEDS: Citalopram 20 MG Tab PO SCH (08:25)
--- NOTE | 2017-04-03 12:21 | PCM.SN ---
- Free Text/Narrative Note: POD 3 Hosp Serv re: CP Stable VS Stable PE A/P Noncardiac CP Unremarkable Pulm eval Continue usual post surgical treatment Will sign off
--- NOTE | 2017-04-03 13:30 | PCM.SURGPN ---
- General Info Date of Service: 04/03/17 - Patient Data Vitals - Most Recent: Last Vital Signs Temp 98.8 F 04/03/17 12:35 Pulse 88 04/03/17 12:35 Resp 17 04/03/17 12:35 BP 126/62 04/03/17 12:35 Pulse Ox 93 L 04/03/17 13:13 Weight - Most Recent: 96.388 kg I&O - Last 24 Hours: Intake & Output 04/02/17 04/03/17 04/03/17 23:59 07:59 15:59 Intake Total 780 600 120 Output Total 450 Balance 780 150 120 Lab Results Last 24 Hrs: Laboratory Results - last 24 hr 04/03/17 Range/Units 05:49 WBC 7.30 (3.98-10.04) K/mm3 RBC 3.52 L (3.98-5.22) M/mm3 Hgb 10.0 L (11.2-15.7) gm/L Hct 31.3 L (34.1-44.9) % MCV 88.9 (79.4-94.8) fl MCH 28.4 (25.6-32.2) pg MCHC 31.9 L (32.2-35.5) g/dl RDW Std Deviation 42.0 (36.4-46.3) fL Plt Count 319 (182-369) K/mm3 MPV 8.9 L (9.4-12.3) fl Neut % (Auto) 68.7 (34.0-71.1) % Lymph % (Auto) 20.1 (19.3-51.7) % [place] % (Auto) 9.5 (4.7-12.5) % Eos % (Auto) 1.2 (0.7-5.8) Baso % (Auto) 0.1 (0.1-1.2) % Neut # (Auto) 5.01 (1.56-6.13) K/mm3 Lymph # (Auto) 1.47 (1.18-3.74) K/mm3 [place] # (Auto) 0.69 H (0.24-0.36) K/mm3 Eos # (Auto) 0.09 (0.04-0.36) K/mm3 Baso # (Auto) 0.01 (0.01-0.08) K/mm3 Med Orders - Current: Current Medications Hydrocodone Bitart/Acetaminophen ([place] 325-5 Mg) 1 tab PO Q6H PRN PRN Reason: Pain Last Admin: 04/02/17 22:24 Dose: 1 tab Albuterol (Proventil Neb Soln) 2.5 mg NEB Q4HRRT PRN PRN Reason: Shortness of Breath Albuterol (Proventil Neb Soln) 2.5 mg NEB TIDRT [facility] Last Admin: 04/03/17 13:13 Dose: 2.5 mg Citalopram Hydrobromide (Celexa) 20 mg PO DAILY [facility] Last Admin: 04/03/17 08:25 Dose: 20 mg Hydromorphone HCl (Dilaudid) 0.5 mg IVPUSH Q1H PRN PRN Reason: Pain Last Admin: 04/01/17 20:49 Dose: 0.5 mg Cefoxitin Sodium 1 gm/ Premix 50 mls @ 100 mls/hr IV Q6H [facility] Last Admin: 04/03/17 11:13 Dose: 100 mls/hr Metronidazole 500 mg/ Premix 100 mls @ 100 mls/hr IV Q8H [facility] Last Admin: 04/03/17 08:25 Dose: 100 mls/hr Ketorolac Tromethamine (Toradol) 30 mg IVPUSH Q6H PRN PRN Reason: Pain Last Admin: 04/02/17 03:49 Dose: 30 mg Nitroglycerin (Nitrostat) 0.4 mg SL Q5M PRN PRN Reason: Chest Pain Ondansetron HCl (Zofran) 4 mg IVPUSH Q8H PRN PRN Reason: Nausea Last Admin: 03/31/17 10:14 Dose: 4 mg Senna/Docusate Sodium (Senna Plus) 2 tab PO DAILY PRN PRN Reason: Constipation Last Admin: 04/03/17 08:44 Dose: 2 tab Sodium Chloride (Saline Flush) 10 ml FLUSH ASDIRECTED PRN PRN Reason: Keep Vein Open Discontinued Medications Bupivacaine HCl (Marcaine 0.5%) Confirm Administered Dose 30 ml .ROUTE .STK-MED ONE Stop: 03/31/17 00:15 Last Admin: 03/31/17 01:15 Dose: 12 ml Dexamethasone (Dexamethasone) Confirm Administered Dose 20 mg .ROUTE .STK-MED ONE Stop: 03/31/17 00:47 Diatrizoate Meglum/Diatrizoate Sod (Gastrografin 37%) 90 ml PO ONETIME ONE Stop: 03/30/17 22:49 Last Admin: 03/30/17 23:13 Dose: 90 ml Diphenhydramine HCl (Benadryl) 25 mg IVPUSH Q6H PRN PRN Reason: pruritis Fentanyl (Sublimaze) Confirm Administered Dose 250 mcg .ROUTE .STK-MED ONE Stop: 03/31/17 00:48 Fentanyl (Sublimaze) 50 mcg IVPUSH Q5M PRN PRN Reason: Pain Fentanyl (Sublimaze) Confirm Administered Dose 100 mcg .ROUTE .STK-MED ONE Stop: 03/31/17 02:32 Glycopyrrolate () Confirm Administered Dose 1 mg .ROUTE .STK-MED ONE Stop: 03/31/17 01:47 Heparin Sodium (Porcine) (Heparin Sodium) 5,000 units SUBCUT Q12H [facility] Last Admin: 04/02/17 09:04 Dose: 5,000 units Hydromorphone HCl (Dilaudid) 1 mg IVPUSH ONETIME ONE Stop: 03/30/17 21:38 Last Admin: 03/30/17 21:51 Dose: 1 mg Hydromorphone HCl (Dilaudid) 0.5 mg IVPUSH Q15M PRN PRN Reason: severe pain Hydromorphone HCl (Dilaudid) Confirm Administered Dose 1 mg .ROUTE .STK-MED ONE Stop: 03/31/17 02:55 Sodium Chloride (Normal Saline) 1,000 mls @ 150 mls/hr IV ASDIRECTED [facility] Last Admin: 03/30/17 21:47 Dose: 150 mls/hr Cefoxitin Sodium 2 gm/ Premix 50 mls @ 100 mls/hr IV ONETIME ONE Stop: 03/31/17 00:20 Last Admin: 03/31/17 00:50 Dose: 100 mls/hr Metronidazole 500 mg/ Premix 100 mls @ 100 mls/hr IV ONETIME ONE Stop: 03/31/17 00:51 Last Admin: 03/31/17 00:14 Dose: 100 mls/hr Lactated Ringer's (Ringers, Lactated) 1,000 mls @ 999 mls/hr IV ASDIRECTED [facility] Lidocaine HCl (Xylocaine-Mpf 1%) Confirm Administered Dose 4 mls @ as directed .ROUTE .STK-MED ONE Stop: 03/31/17 00:47 Lactated Ringer's (Ringers, Lactated) Confirm Administered Dose 1,000 mls @ as directed .ROUTE .STK-MED ONE Stop: 03/31/17 00:47 Phenylephrine HCl 1 mg/ Sodium (Chloride) 10.1 mls @ 1 mls/sec IV TITRATE [facility] PRN Reason: Protocol Metronidazole 500 mg/ Premix 100 mls @ 100 mls/hr IV Q8H [facility] Last Admin: 03/31/17 06:59 Dose: Not Given Cefoxitin Sodium 1 gm/ Premix 50 mls @ 100 mls/hr IV Q6H [facility] Last Admin: 03/31/17 04:58 Dose: 100 mls/hr Lactated Ringer's (Ringers, Lactated) 1,000 mls @ 100 mls/hr IV ASDIRECTED [facility] Last Admin: 04/01/17 20:58 Dose: 75 mls/hr Lactated Ringer's (Ringers, Lactated) 1,000 mls @ 75 mls/hr IV ASDIRECTED [facility] Iopamidol (Isovue-300 (61%)) 125 ml IVPUSH ONETIME ONE Stop: 03/30/17 22:49 Last Admin: 03/30/17 23:13 Dose: 125 ml Ketorolac Tromethamine (Toradol) Confirm Administered Dose 30 mg .ROUTE .STK- MED ONE Stop: 03/31/17 00:47 Lorazepam (Ativan) 1 mg IVPUSH ONETIME ONE Stop: 04/01/17 21:36 Last Admin: 04/01/17 22:24 Dose: 1 mg Midazolam HCl (Versed 1 Mg/Ml) Confirm Administered Dose 2 mg .ROUTE .STK-MED ONE Stop: 03/31/17 00:48 Midazolam HCl (Versed 1 Mg/Ml) 2 mg IVPUSH ONETIME PRN PRN Reason: Sedation Neostigmine Methylsulfate (Neostigmine) Confirm Administered Dose 5 mg .ROUTE .STK-MED ONE Stop: 03/31/17 01:47 Ondansetron HCl (Zofran) 4 mg IVPUSH ONETIME ONE Stop: 03/30/17 21:38 Last Admin: 03/30/17 21:47 Dose: 4 mg Ondansetron HCl (Zofran) 4 mg IVPUSH ONETIME ONE Stop: 03/30/17 22:30 Last Admin: 03/30/17 22:33 Dose: 4 mg Ondansetron HCl (Zofran) Confirm Administered Dose 4 mg .ROUTE .STK-MED ONE Stop: 03/31/17 00:47 Ondansetron HCl (Zofran) 4 mg IVPUSH ONETIME PRN PRN Reason: Nausea/Vomiting Last Admin: 03/31/17 04:55 Dose: 4 mg Propofol (Diprivan 20 Ml) Confirm Administered Dose 200 mg .ROUTE .STK-MED ONE Stop: 03/31/17 00:48 Rocuronium [place] (Zemuron) Confirm Administered Dose 50 mg .ROUTE .STK-MED ONE Stop: 03/31/17 00:47 Scopolamine (Transderm-Scop) 1.5 mg TRDERM ONETIME ONE Stop: 03/31/17 01:01 Last Admin: 03/31/17 00:50 Dose: 1.5 mg Succinylcholine Chloride (Quelicin) Confirm Administered Dose 200 mg .ROUTE .STK -MED ONE Stop: 03/31/17 00:47 - Problem List Review Problem List Initiated/Reviewed/Updated: Yes - My Orders Last 24 Hours: Active Orders 24 hr Category Date Time Status Incentive Spirometry [RT Incentive Spirometry] [RC] Care 04/02/17 15:33 Active ASDIRECTED CBC W/O DIFF,HEMOGRAM [HEME] MOTH@0700 Lab 04/05/17 07:00 Ordered CBC W/O DIFF,HEMOGRAM [HEME] MOTH@0700 Lab 04/09/17 07:00 Ordered CBC W/O DIFF,HEMOGRAM [HEME] MOTH@0700 Lab 04/12/17 07:00 Ordered CBC W/O DIFF,HEMOGRAM [HEME] MOTH@0700 Lab 04/16/17 07:00 Ordered CBC W/O DIFF,HEMOGRAM [HEME] MOTH@0700 Lab 04/19/17 07:00 Ordered Albuterol [Proventil Neb Soln] Med 04/02/17 15:33 Active 2.5 mg NEB TIDRT Docusate Sodium/Sennosides [Senna Plus] Med 04/03/17 08:35 Active 2 tab PO DAILY PRN Medication Orders Hydrocodone Bitart/Acetaminophen ([place] 325-5 Mg) 1 tab PO Q6H PRN PRN Reason: Pain Last Admin: 04/02/17 22:24 Dose: 1 tab Admin: 04/02/17 16:20 Dose: 1 tab Admin: 04/02/17 03:48 Dose: 1 tab Admin: 04/01/17 20:39 Dose: 1 tab Admin: 04/01/17 14:33 Dose: 1 tab Albuterol (Proventil Neb Soln) 2.5 mg NEB Q4HRRT PRN PRN Reason: Shortness of Breath Albuterol (Proventil Neb Soln) 2.5 mg NEB TIDRT [facility] Last Admin: 04/03/17 13:13 Dose: 2.5 mg Admin: 04/03/17 06:28 Dose: 2.5 mg Admin: 04/02/17 21:44 Dose: 2.5 mg Admin: 04/02/17 16:07 Dose: 2.5 mg Citalopram Hydrobromide (Celexa) 20 mg PO DAILY [facility] Last Admin: 04/03/17 08:25 Dose: 20 mg Admin: 04/02/17 09:04 Dose: 20 mg Admin: 04/01/17 08:15 Dose: 20 mg Admin: 03/31/17 08:51 Dose: 20 mg Hydromorphone HCl (Dilaudid) 0.5 mg IVPUSH Q1H PRN PRN Reason: Pain Last Admin: 04/01/17 20:49 Dose: 0.5 mg Admin: 03/31/17 10:04 Dose: 0.5 mg Cefoxitin Sodium 1 gm/ Premix 50 mls @ 100 mls/hr IV Q6H [facility] Last Admin: 04/03/17 11:13 Dose: 100 mls/hr Infusion: 04/03/17 06:03 Dose: 100 mls/hr Admin: 04/03/17 05:33 Dose: 100 mls/hr Infusion: 04/03/17 00:21 Dose: 100 mls/hr Admin: 04/02/17 23:51 Dose: 100 mls/hr Infusion: 04/02/17 18:42 Dose: 100 mls/hr Admin: 04/02/17 18:12 Dose: 100 mls/hr Infusion: 04/02/17 12:35 Dose: 100 mls/hr Admin: 04/02/17 12:05 Dose: 100 mls/hr Infusion: 04/02/17 06:11 Dose: 100 mls/hr Admin: 04/02/17 05:41 Dose: 100 mls/hr Infusion: 04/02/17 01:14 Dose: 100 mls/hr Admin: 04/02/17 00:44 Dose: 100 mls/hr Infusion: 04/01/17 18:34 Dose: 100 mls/hr Admin: 04/01/17 18:04 Dose: 100 mls/hr Infusion: 04/01/17 12:26 Dose: 100 mls/hr Admin: 04/01/17 11:56 Dose: 100 mls/hr Infusion: 04/01/17 05:47 Dose: 100 mls/hr Admin: 04/01/17 05:17 Dose: 100 mls/hr Infusion: 04/01/17 00:31 Dose: 100 mls/hr Admin: 04/01/17 00:01 Dose: 100 mls/hr Infusion: 03/31/17 19:26 Dose: 100 mls/hr Admin: 03/31/17 18:56 Dose: 100 mls/hr Infusion: 03/31/17 12:09 Dose: 100 mls/hr Admin: 03/31/17 11:39 Dose: 100 mls/hr Infusion: 03/31/17 07:07 Dose: 100 mls/hr Admin: 03/31/17 06:37 Dose: 100 mls/hr Metronidazole 500 mg/ Premix 100 mls @ 100 mls/hr IV Q8H [facility] Last Admin: 04/03/17 08:25 Dose: 100 mls/hr Infusion: 04/03/17 00:50 Dose: 100 mls/hr Admin: 04/02/17 23:50 Dose: 100 mls/hr Infusion: 04/02/17 17:20 Dose: 100 mls/hr Admin: 04/02/17 16:20 Dose: 100 mls/hr Infusion: 04/02/17 10:03 Dose: 100 mls/hr Admin: 04/02/17 09:03 Dose: 100 mls/hr Infusion: 04/02/17 02:16 Dose: 100 mls/hr Admin: 04/02/17 01:16 Dose: 100 mls/hr Infusion: 04/01/17 16:58 Dose: 100 mls/hr Admin: 04/01/17 15:58 Dose: 100 mls/hr Infusion: 04/01/17 09:17 Dose: 100 mls/hr Admin: 04/01/17 08:17 Dose: 100 mls/hr Infusion: 04/01/17 01:38 Dose: 100 mls/hr Admin: 04/01/17 00:38 Dose: 100 mls/hr Infusion: 03/31/17 16:04 Dose: 100 mls/hr Admin: 03/31/17 15:04 Dose: 100 mls/hr Infusion: 03/31/17 09:48 Dose: 100 mls/hr Admin: 03/31/17 08:48 Dose: 100 mls/hr Ketorolac Tromethamine (Toradol) 30 mg IVPUSH Q6H PRN PRN Reason: Pain Last Admin: 04/02/17 03:49 Dose: 30 mg Admin: 04/01/17 08:08 Dose: 30 mg Admin: 04/01/17 01:53 Dose: 30 mg Admin: 03/31/17 19:42 Dose: 30 mg Admin: 03/31/17 06:51 Dose: 30 mg Nitroglycerin (Nitrostat) 0.4 mg SL Q5M PRN PRN Reason: Chest Pain Ondansetron HCl (Zofran) 4 mg IVPUSH Q8H PRN PRN Reason: Nausea Last Admin: 03/31/17 10:14 Dose: 4 mg Senna/Docusate Sodium (Senna Plus) 2 tab PO DAILY PRN PRN Reason: Constipation Last Admin: 04/03/17 08:44 Dose: 2 tab Sodium Chloride (Saline Flush) 10 ml FLUSH ASDIRECTED PRN PRN Reason: Keep Vein Open - Plan Plan (Free Text/Narrative):: discharge dictated MERCEDES
--- NOTE | 2017-04-04 12:56 | DISCH ---
ADMISSION DATE: 03/31/2017 DISCHARGE DATE: 04/03/2017 HISTORY OF PRESENT ILLNESS: This is a 41-year-old female who presented to the emergency room with right lower quadrant pain. A CT scan was done showing acute appendicitis. She was in a retrocecal position. Her comorbidities were that of anxiety. PHYSICAL EXAMINATION: GENERAL: At the admission showed alert, cooperative female. VITAL SIGNS: Stable. ABDOMEN: There was tenderness in the right lower quadrant. HOSPITAL COURSE: The patient was seen in the emergency room and started on antibiotics and brought to the operating room, where a retrocecal appendix was found and bladder removed laparoscopically. The patient's postoperative course was that of some hypoxia requiring O2 and some atelectasis noted by some slight rales. She did have an episode of chest pain, which was felt to be anxiety. Her pulse was elevated at 107. The patient was evaluated by the hospitalist. She did have a drop in her hemoglobin from 13-10 portion of that is dilutional, the rest was oozing from the surgical site. Initially, she was treated with subcu heparin for thromboembolic prophylaxis, but because of her drop in hemoglobin, this was stopped and she never relied on SCD and early ambulation. Her hypoxia was treated with deep breathing, cough, ambulation, and then albuterol inhalers. The patient gradually improved. At the time of her discharge, her sats were up to about 93% on room air. She was up and ambulating and coughing. She did have few slight rales in her base on the right. Tie Siding to be due to some atelectasis. She is eating a regular diet, having a bowel movement. The wounds had healed per primam. The patient had completed 4 days of antibiotics, Flagyl and cefoxitin. The patient was up and ambulating and eating a regular diet. The patient reached maximum hospital benefit, was discharged, discharged for followup in the clinic in a week. DISCHARGE DIAGNOSES: 1. Acute appendicitis with rupture, status post laparoscopic appendectomy. 2. Postoperative atelectasis, hypoxia, resolving. 3. Drop in the hemoglobin secondary to surgery. 4. Anxiety with chest pain, improved. PLAN: 1. Discharge the patient on her preoperative medications, tramadol and Celexa. 2. Continue antibiotics, Flagyl 500 mg p.o. t.i.d. for 3 days and Levaquin 500 mg p.o. daily for 3 days. 3. Pain medication: Use Tylenol. 4. No work. No pushing, shoving, or pulling. May shower. DIET: Regular. CONDITION ON DISCHARGE: Improved. FINAL DIAGNOSIS: DISCHARGE MEDICATIONS: ACTIVITY: FOLLOW-UP: MMODAL /[id number]
== END 2017-04-03 14:22 | disposition home or self-care (01) | DRG 340 ==
LOC: JD.ED 20:14 → JD.SDS 03-31 00:01 → JD.MS 03-31 02:58
PROVIDERS: ADMIT Surgery; ATTEND Surgery
PROC: 0DTJ4ZZ Resection of Appendix, Percutaneous Endoscopic Approach (ICD-10-PCS; principal; 2017-03-31)
DX: K35.2 Acute appendicitis with generalized peritonitis (principal); R07.89 Other chest pain; R06.02 Shortness of breath; F41.9 Anxiety disorder, unspecified; Z79.899 Other long term (current) drug therapy
CPT/HCPCS: 00840; 36415; 71010; 71010-26; 71020; 71020-26; 74177; 74177-26; 80053; 81001; 81025; 83690; 84484; 85025; 85027; 93005; 94640; 94760; 94761; 96361; 96365; 96375; 96376; 99284; 99285-25; A9270-GY; J0330; J0694; J1100; J1170; J1644; J1885; J2060; J2250; J2405; J2704; J2710; J3010; J7040; J7120; Q9963; Q9967

== ENCOUNTER 2017-09-18 16:08 | Emergency (ER) | payer SELFPAY ==
[2017-09-18] MEDS ORDERED: Ondansetron 4 MG Tab.DIS PO ONE (16:34)
[2017-09-18] MEDS ORDERED: Acetaminophen/oxyCODONE 325-5 MG Tab PO ONE (16:34)
--- NOTE | 2017-09-18 16:50 | EDM.PDOC ---
ED HPI GENERAL MEDICAL PROBLEM - General Chief Complaint: Lower Extremity Injury/Pain Stated Complaint: HURT RIGHT FOOT Time Seen by Provider: 09/18/17 16:19 Source of Information: Reports: Patient History Limitations: Reports: No Limitations - History of Present Illness INITIAL COMMENTS - FREE TEXT/NARRATIVE: 42-year-old female presents for evaluation and treatment of injury to the right foot. Patient reports injury occurred prior to arrival in the ER. She states that she fell down approximately 10 stairs. Reports she was walking down some stairs with her dogs and she either tripped over her sandal or a dog. She is primarily complaining of pain to the right ankle and right dorsal foot. Swelling and bruising noted to the right dorsal foot. She reports pain with range of motion walking. No numbness or tingling. patient states that she did not hit her head or lose consciousness. She is denying headaches, syncope, nausea, vomiting, chest pain, neck pain, shortness of breath, abdominal pain, lightheadedness or dizziness. Onset: Today Location: Reports: Lower Extremity, Right Right Feet Pain Score (Numeric/FACES): 8 - Related Data Allergies Allergy/AdvReac Type Severity Reaction Status Date / Time No Known Allergies Allergy Verified 09/18/17 16:16 Home Meds: Home Meds Citalopram [Celexa] 20 mg PO DAILY 03/30/17 [History] traMADol [Ultram] 50 mg PO ASDIRECTED PRN 03/30/17 [History] Acetaminophen/oxyCODONE [Percocet 325-5 MG] 1 tab PO Q6HR PRN #10 tab 09/18/17 [ Rx] Past Medical History Respiratory History: Reports: None Gastrointestinal History: Reports: None Genitourinary History: Reports: Urinary Incontinence 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: , Other (See Below) Psychiatric History: Reports: Anxiety, Depression Endocrine/Metabolic History: Reports: Obesity/BMI 30+ - Infectious Disease History Infectious Disease History: Reports: Influenza - Past Surgical History Head Surgeries/Procedures: Reports: None HEENT Surgical History: Reports: Oral Surgery GI Surgical History: Reports: Other (See Below) Other GI Surgeries/Procedures: 03/31/17 lap appy that had ruptured Female Surgical History: Reports: Section, Salpingo-Oophorectomy, Tubal Ligation Endocrine Surgical History: Reports: None Musculoskeletal Surgical History: Reports: None Social & Family History - Family History Family Medical History: Noncontributory - Tobacco Use Smoking Status *Q: Never Smoker - Caffeine Use Caffeine Use: Reports: Coffee, Soda Other Caffeine Use: 2 cups of coffee a day and 3 sodas a day - Recreational Drug Use Recreational Drug Use: No - Living Situation & Occupation Living situation: Reports: , with Spouse Occupation: Unemployed Review of Systems - Review of Systems Review Of Systems: See Below Nose: Denies: Epistaxis Mouth/Throat: Denies: Loose Teeth Respiratory: Denies: Shortness of Breath Cardiovascular: Denies: Chest Pain, Syncope GI/Abdominal: Denies: Abdominal Pain, Nausea, Vomiting Musculoskeletal: Reports: Foot Pain (right), Joint Pain (right ankle). Denies: Neck Pain, Back Pain Neurological: Denies: Headache, Numbness, Syncope, Tingling ED EXAM, GENERAL - Physical Exam Exam: See Below Exam Limited By: No Limitations General Appearance: WD/WN, No Apparent Distress Ears: Normal External Exam, Normal Canal, Normal TMs Nose: Normal Inspection, No Blood Throat/Mouth: Normal Inspection, Normal Lips, Normal Teeth, Normal Oropharynx, Normal Voice, No Airway Compromise Head: Atraumatic, Normocephalic Neck: Normal Inspection, Supple, Non-Tender, Full Range of Motion Respiratory/Chest: No Respiratory Distress, Lungs Clear, Normal Breath Sounds, Chest Non-Tender Cardiovascular: Normal Peripheral Pulses, Regular Rate, Rhythm, No Murmur Peripheral Pulses: 2+: Posterior Tibial (L), Posterior Tibial (R), Dorsalis Pedis (L), Dorsalis Pedis (R) GI/Abdominal: Normal Bowel Sounds, Soft, Non-Tender Back Exam: Normal Inspection. No: Vertebral Tenderness Extremities: Normal Inspection, Other (Swelling to the right dorsal foot over the cuboid and navicular; pain to the right lateral malleolus both proximal and distal; pain with range of motion. Pain with dorsiflexion and plantar flexion. Able to wiggle her toes. Reports sensation to light touch.) Neurological: Alert, Oriented, Normal Cognition Psychiatric: Normal Affect, Normal Mood Skin Exam: Warm, Dry, Normal Color Course - Vital Signs Last Recorded V/S: Last Vital Signs Temp 36.6 C 09/18/17 16:15 Pulse 99 09/18/17 16:15 Resp 16 09/18/17 16:15 BP 140/97 H 09/18/17 16:15 Pulse Ox 99 09/18/17 16:15 - Orders/Labs/Meds Orders: Active Orders 24 hr Category Date Time Status Ankle Min 3V Rt [CR] Stat Exams 09/18/17 16:29 Ordered Foot Comp Min 3V Rt [CR] Stat Exams 09/18/17 16:29 Ordered Meds: Medications Discontinued Medications Generic Name Dose Route Start Last Admin Trade Name Baldev PRN Reason Stop Dose Admin Ondansetron HCl 4 mg 09/18/17 16:34 Zofran Odt PO 09/18/17 16:35 ONETIME ONE Oxycodone/Acetaminophen 1 tab 09/18/17 16:34 Percocet 325-5 Mg PO 09/18/17 16:35 ONETIME ONE - Radiology Interpretation Free Text/Narrative:: Right ankle: Four views of the right ankle were obtained. Comparison: No previous study. Plantar spur is seen. Spur noted at the attachment of Achilles tendon and calcaneus. Ankle mortise is symmetric. No acute fracture, dislocation or other bony abnormality is seen. Impression: 1. Calcaneal spurs. 2. No additional abnormality is identified on right ankle exam. Right foot: Four views of the right foot were obtained. Calcaneal spurs are again noted. Slight deformity within the base of the fifth metatarsal is seen which may represent normal variant or old healed fracture. Joint spaces are fairly well preserved. No acute fracture, dislocation or other bony abnormality is seen. Impression: 1. Findings which are felt to be incidental as described above. Nothing acute is seen on right foot exam. - Re-Assessments/Exams Free Text/Narrative Re-Assessment/Exam: 09/18/17 17:50 I reviewed the x-ray results with the patient. Discussed CT with the patient as she is more tender than expected. I did offer her CT tonight or treat her conservatively and have her follow-up with her primary care provider. She may require an x-ray if she does not improve. She elects to follow-up with her primary care provider and re-x-ray the foot if needed. Discharge instructions as documented. Departure - Departure Time of Disposition: 17:45 Disposition: Home, Self-Care 01 Condition: Fair Clinical Impression: Right foot injury, Traumatic ecchymosis of right foot - Discharge Information Prescriptions: Acetaminophen/oxyCODONE [Percocet 325-5 MG] 1 tab PO Q6HR PRN #10 tab PRN Reason: Pain Referrals: Kenyatta Pham, DIETARY WORKER [Primary Care Provider] - Additional Instructions: You were given medication the other can affect your ability to drive and operate machinery. Do not drive or operate machinery within 12 hours of taking prescription narcotic pain medication. Percocet 1 tab every 4-6 hours as needed for severe pain. Do not drive or operate machinery within 12 hours of taking Percocet. Percocet is habit-forming, take as few these as needed to control your pain. Do not take more than 4 g of Tylenol from all sources in 1 day, do not take more than 3200 mg of ibuprofen from all sources in 1 day. Ice the sore area. Crutches and an YANICK bandage. Follow-up with your primary care provider in 7-10 days for recheck. Every once in a while fractures do not show up initially on x-ray; may require further imaging of this if you do not improve. Please return to the ER if your symptoms change or worsen. - My Orders Last 24 Hours: My Active Orders 09/18/17 16:29 Ankle Min 3V Rt [CR] Stat Foot Comp Min 3V Rt [CR] Stat - Assessment/Plan Last 24 Hours: My Active Orders 09/18/17 16:29 Ankle Min 3V Rt [CR] Stat Foot Comp Min 3V Rt [CR] Stat
--- NOTE | 2017-09-18 18:20 | CR ---
Right ankle: Four views of the right ankle were obtained. Comparison: No previous study. Plantar spur is seen. Spur noted at the attachment of Achilles tendon and calcaneus. Ankle mortise is symmetric. No acute fracture, dislocation or other bony abnormality is seen. Impression: 1. Calcaneal spurs. 2. No additional abnormality is identified on right ankle exam. Diagnostic code #2
--- NOTE | 2017-09-18 18:20 | CR ---
Right foot: Four views of the right foot were obtained. Calcaneal spurs are again noted. Slight deformity within the base of the fifth metatarsal is seen which may represent normal variant or old healed fracture. Joint spaces are fairly well preserved. No acute fracture, dislocation or other bony abnormality is seen. Impression: 1. Findings which are felt to be incidental as described above. Nothing acute is seen on right foot exam. Diagnostic code #2
== END 2017-09-18 17:58 | disposition home or self-care (01) ==
LOC: JD.ED 16:08
DX: S90.31XA Contusion of right foot, initial encounter (principal); M77.31 Calcaneal spur, right foot; F41.9 Anxiety disorder, unspecified; F32.9 Major depressive disorder, single episode, unspecified; Z79.899 Other long term (current) drug therapy; W10.8XXA Fall (on) (from) other stairs and steps, initial encounter
CPT/HCPCS: 73610; 73630; 99283; A9270

== ENCOUNTER 2018-08-26 14:44 | Emergency (ER) | payer OTHER ==
[2018-08-26] MEDS ORDERED: Sodium Chloride 0.9% 10 ML Syringe FLUSH PRN (15:23)
[2018-08-26] MEDS ORDERED: Ondansetron 4 MG/2 ML SDV IVPUSH ONE (15:23)
[2018-08-26] MEDS ORDERED: Pantoprazole 40 MG Vial IVPUSH ONE (15:25)
[2018-08-26] MEDS ORDERED: Alum Hydrox/Mag Hydrox/Simeth 30 ML, Lidocaine 2% 15 ML PO ONE ×2 (15:25)
[2018-08-26] MEDS ORDERED: Sodium Chloride 0.9% 1,000 ML IV SCH (15:30)
[2018-08-26] MEDS: HYDROmorphone 0.5 MG/0.5 ML Syringe IVPUSH ONE ×2 (16:12→16:13)
--- NOTE | 2018-08-26 17:31 | EDM.PDOC ---
ED HPI GENERAL MEDICAL PROBLEM - General Chief Complaint: Abdominal Pain Stated Complaint: R SIDE ABDOMINAL PAIN Time Seen by Provider: 08/26/18 14:48 Source of Information: Reports: Patient History Limitations: Reports: No Limitations - History of Present Illness INITIAL COMMENTS - FREE TEXT/NARRATIVE: Patient is a 43-year-old female who presents ED complaining of epigastric and right upper quadrant abdominal pain. Pain radiates into her right shoulder and also around to the right flank. This started approximate 4 days ago. She was the walk-in clinic Sunday of last week and an ultrasound of the right upper quadrant obtained with no issues at that time. Over the past weekend she has been eating fatty foods including pizza last night, and fast food from [employer]. Last night she developed severe pain to this region. She had been mildly nauseated at times. No emesis. She has a history of diarrhea which is chronic. No dark tarry stools, bloody stools, dysuria, fever, chest pain or shortness of breath. She does have a history of acid reflux that has been worse as of recent. Pain is currently mild to moderate intensity. At its peak as 7 out of 10. Otherwise she offers no additional complaints. 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: , Other (See Below) Psychiatric History: Reports: Anxiety, Depression Endocrine/Metabolic History: Reports: Obesity/BMI 30+ - Infectious Disease History Infectious Disease History: Reports: Influenza - Past Surgical History Head Surgeries/Procedures: Reports: None HEENT Surgical History: Reports: Oral Surgery GI Surgical History: Reports: Other (See Below) Other GI Surgeries/Procedures: 03/31/17 lap appy that had ruptured Female Surgical History: Reports: Section, Salpingo-Oophorectomy, Tubal Ligation Endocrine Surgical History: Reports: None Musculoskeletal Surgical History: Reports: None, Carpal Tunnel Social & Family History - Family History Family Medical History: Noncontributory - Tobacco Use Smoking Status *Q: Never Smoker - Caffeine Use Caffeine Use: Reports: Coffee, Soda Other Caffeine Use: 2 cups of coffee a day and 3 sodas a day - Recreational Drug Use Recreational Drug Use: No - Living Situation & Occupation Living situation: Reports: , with Spouse Occupation: Unemployed ED ROS GENERAL - Review of Systems Review Of Systems: ROS reveals no pertinent complaints other than HPI. ED EXAM, GI/ABD - Physical Exam Exam: See Below Exam Limited By: No Limitations General Appearance: Alert, WD/WN, No Apparent Distress Eyes: Bilateral: Normal Appearance Ears: Hearing Grossly Normal Nose: Normal Inspection Throat/Mouth: Normal Voice, No Airway Compromise Head: Atraumatic, Normocephalic Neck: Normal Inspection, Supple Respiratory/Chest: No Respiratory Distress, Lungs Clear, Normal Breath Sounds, No Accessory Muscle Use Cardiovascular: Normal Peripheral Pulses, Regular Rate, Rhythm, No Murmur GI/Abdominal Exam: Normal Bowel Sounds, Soft, No Organomegaly, No Distention, Tender (RUQ: +castillo sign). No: Distended, Guarding, Rigid (Female) Exam: Deferred (no complaints) Rectal (Female) Exam: Deferred Back Exam: Normal Inspection. No: CVA Tenderness (L), CVA Tenderness (R) Extremities: Normal Inspection, Normal Range of Motion, Non-Tender, No Pedal Edema Neurological: Alert, Oriented, CN II-XII Intact, Normal Cognition, No Motor/ Sensory Deficits Psychiatric: Normal Affect, Normal Mood Skin Exam: Warm, Dry, Intact, Normal Color, No Rash Course - Vital Signs Last Recorded V/S: Last Vital Signs Temp 98.7 F 08/26/18 15:06 Pulse 93 08/26/18 15:06 Resp 20 08/26/18 15:06 BP 125/81 08/26/18 15:06 Pulse Ox 96 08/26/18 15:06 - Orders/Labs/Meds Labs: Laboratory Tests 08/26/18 08/26/18 08/26/18 Range/Units 15:35 15:35 16:00 WBC 6.96 (3.98-10.04) K/mm3 RBC 4.47 (3.98-5.22) M/mm3 Hgb 12.9 D (11.2-15.7) gm/L Hct 38.3 (34.1-44.9) % MCV 85.7 (79.4-94.8) fl MCH 28.9 (25.6-32.2) pg MCHC 33.7 (32.2-35.5) g/dl RDW Std Deviation 38.9 (36.4-46.3) fL Plt Count 401 H (182-369) K/mm3 MPV 8.3 L (9.4-12.3) fl Neutrophils % (Manual) 61 H (40-60) % Band Neutrophils % 0 (0-10) % Lymphocytes % (Manual) 32 (20-40) % Atypical Lymphs % 0 % Monocytes % (Manual) 6 (2-10) % Eosinophils % (Manual) 1 (0.7-5.8) % Basophils % (Manual) 0 L (0.1-1.2) Platelet Estimate Adequate Plt Morphology Comment Normal RBC Morph Comment Normal Sodium 139 (136-145) mEq/L Potassium 3.5 (3.5-5.1) mEq/L Chloride 102 (98-107) mEq/L Carbon Dioxide 27 (21-32) mEq/L Anion Gap 13.5 (5-15) BUN 8 (7-18) mg/dL Creatinine 0.8 (0.55-1.02) mg/dL Est Cr Clr Drug Dosing 70.24 mL/min Estimated GFR (MDRD) > 60 (>60) mL/min BUN/Creatinine Ratio 10.0 L (14-18) Glucose 97 (74-106) mg/dL Calcium 9.0 (8.5-10.1) mg/dL Total Bilirubin 0.5 (0.2-1.0) mg/dL Direct Bilirubin 0.10 (0.0-0.2) mg/dl GGT 101 H (5-55) U/L AST 20 (15-37) U/L ALT 29 (14-59) U/L Alkaline Phosphatase 101 (46-116) U/L Troponin I < 0.017 (0.00-0.056) ng/mL C-Reactive Protein 1.1 H* (<1.0) mg/dL Total Protein 7.5 (6.4-8.2) g/dl Albumin 3.6 (3.4-5.0) g/dl Globulin 3.9 gm/dL Albumin/Globulin Ratio 0.9 L (1-2) Lipase 102 (73-393) U/L Urine Color Yellow (Yellow) Urine Appearance Slt cloudy H (Clear) Urine pH 7.0 (5.0-8.0) Ur Specific [place] 1.025 (1.005-1.030) Urine Protein Trace H (Negative) Urine Glucose (UA) Negative (Negative) Urine Ketones Negative (Negative) Urine Occult Blood Negative (Negative) Urine Nitrite Negative (Negative) Urine Bilirubin Negative (Negative) Urine Urobilinogen 0.2 (0.2-1.0) Ur Leukocyte Esterase Negative (Negative) Urine RBC Not seen (0-5) /hpf Urine WBC 0-5 (0-5) /hpf Ur Squamous Epith Cells 10-20 H (0-5) /hpf Urine Bacteria Rare (FEW) /hpf Urine Mucus Rare (FEW) /hpf Urine HCG, Qual (NEGATIVE) 08/26/18 Range/Units 16:00 WBC (3.98-10.04) K/mm3 RBC (3.98-5.22) M/mm3 Hgb (11.2-15.7) gm/L Hct (34.1-44.9) % MCV (79.4-94.8) fl MCH (25.6-32.2) pg MCHC (32.2-35.5) g/dl RDW Std Deviation (36.4-46.3) fL Plt Count (182-369) K/mm3 MPV (9.4-12.3) fl Neutrophils % (Manual) (40-60) % Band Neutrophils % (0-10) % Lymphocytes % (Manual) (20-40) % Atypical Lymphs % % Monocytes % (Manual) (2-10) % Eosinophils % (Manual) (0.7-5.8) % Basophils % (Manual) (0.1-1.2) Platelet Estimate Plt Morphology Comment RBC Morph Comment Sodium (136-145) mEq/L Potassium (3.5-5.1) mEq/L Chloride (98-107) mEq/L Carbon Dioxide (21-32) mEq/L Anion Gap (5-15) BUN (7-18) mg/dL Creatinine (0.55-1.02) mg/dL Est Cr Clr Drug Dosing mL/min Estimated GFR (MDRD) (>60) mL/min BUN/Creatinine Ratio (14-18) Glucose (74-106) mg/dL Calcium (8.5-10.1) mg/dL Total Bilirubin (0.2-1.0) mg/dL Direct Bilirubin (0.0-0.2) mg/dl GGT (5-55) U/L AST (15-37) U/L ALT (14-59) U/L Alkaline Phosphatase (46-116) U/L Troponin I (0.00-0.056) ng/mL C-Reactive Protein (<1.0) mg/dL Total Protein (6.4-8.2) g/dl Albumin (3.4-5.0) g/dl Globulin gm/dL Albumin/Globulin Ratio (1-2) Lipase (73-393) U/L Urine Color (Yellow) Urine Appearance (Clear) Urine pH (5.0-8.0) Ur Specific [place] (1.005-1.030) Urine Protein (Negative) Urine Glucose (UA) (Negative) Urine Ketones (Negative) Urine Occult Blood (Negative) Urine Nitrite (Negative) Urine Bilirubin (Negative) Urine Urobilinogen (0.2-1.0) Ur Leukocyte Esterase (Negative) Urine RBC (0-5) /hpf Urine WBC (0-5) /hpf Ur Squamous Epith Cells (0-5) /hpf Urine Bacteria (FEW) /hpf Urine Mucus (FEW) /hpf Urine HCG, Qual Negative (NEGATIVE) Meds: Medications Discontinued Medications Generic Name Dose Route Start Last Admin Trade Name Freq PRN Reason Stop Dose Admin Al Hydroxide/Mg Hydroxide 30 0 ml 08/26/18 15:25 08/26/18 15:47 ml/ Lidocaine HCl 15 ml PO 08/26/18 15:26 45 ml ONETIME ONE Administration Hydromorphone HCl 0.5 mg 08/26/18 15:24 08/26/18 16:13 Dilaudid IVPUSH 08/26/18 15:25 0.25 mg ONETIME ONE Administration Sodium Chloride 1,000 mls @ 250 mls/hr 08/26/18 15:30 08/26/18 15:59 Normal Saline IV 250 mls/hr ASDIRECTED SANGITA Administration Ondansetron HCl 4 mg 08/26/18 15:23 08/26/18 15:47 Zofran IVPUSH 08/26/18 15:24 4 mg ONETIME ONE Administration Pantoprazole Sodium 40 mg 08/26/18 15:25 08/26/18 15:59 Protonix Iv IVPUSH 08/26/18 15:26 40 mg ONETIME ONE Administration Sodium Chloride 10 ml 08/26/18 15:23 08/26/18 15:59 Saline Flush FLUSH 10 ml ASDIRECTED PRN Administration Keep Vein Open - Re-Assessments/Exams Free Text/Narrative Re-Assessment/Exam: Examination patient's abdomen there is discomfort on the right upper quadrant with positive Castillo sign. She also complaints of pain radiating into her right shoulder. Also some discomfort along the epigastric region. Pain rated a 7 out of 10. Vital signs are stable. She is afebrile. Pain has been present for the past 4 days. Ordered GI cocktail, Dilaudid 0.5 mg IVP, Zofran 4 mg IVP, Protonix 40 mg IVP, and normal saline 250 mL per hour. Initial lab studies include: CBC, C14, crp, hcg, lipase, ua, ekg, and troponin. I will go ahead and order ggt and direct bilirubin as well. Patient received a ultrasound and sent for this past week. I have asked for results of the ultrasound be obtained. Patient cannot recall the results. EKG: SR HR [address] changes. Labs reviewed: CBC, chem 14, troponin, and lipase reveal no concerning findings. CRP mildly elevated at 1.1. UA no concerning findings. HCG negative. pharmacy technology instructor advised the gallbladder is contracted. I have not received any results from ultrasound that was performed last week at [facility]. 1725 Reassessment, patient has no symptoms at this time. She is ready be discharged home. Return precautions discussed with the patient. She had no further questions or concerns. Departure - Departure Time of Disposition: 17:26 Disposition: Home, Self-Care 01 Condition: Good Clinical Impression: Recurrent biliary colic Gastritis Qualifiers: Gastritis type: unspecified gastritis Chronicity: acute Gastritis bleeding: without bleeding Qualified Code(s): K29.00 - Acute gastritis without bleeding GERD (gastroesophageal reflux disease) Qualifiers: Esophagitis presence: esophagitis presence not specified Qualified Code(s): K21.9 - Gastro-esophageal reflux disease without esophagitis - Discharge Information Prescriptions: Acetaminophen/oxyCODONE [Percocet 325-5 MG] 1 each PO QID PRN #20 tab PRN Reason: Pain (Severe 7-10) Ondansetron [Zofran ODT] 4 mg PO Q6H PRN #12 tab.dis PRN Reason: Nausea/Vomiting Instructions: Indigestion, [id number], Gastritis, Adult, [id number], Heartburn, Food Choices for Gastroesophageal Reflux Disease, Adult, Pain Medicine Instructions, [id number] Referrals: Ila Baltazar MD [Physician] - Forms: ED Department Discharge Additional Instructions: Take the Percocet and Zofran as prescribed for pain. Refrain from eating any fatty foods. Suggest eating smaller portions more frequently throughout the day. Refrain from spicy foods, caffeinated beverages, coffee, chocolate's, eating or drinking within 4 hours going to bed due to acid reflux symptoms. Take Prilosec [id number] 40 mg every day for the next 2 weeks then 20 mg thereafter every day. They utilize Zantac in the evening 150 mg as needed for worsening symptoms. I will not order a HIDA scan at this point with not knowing the results of your ultrasound. Unfortunately ultrasound results from [facility] were not faxed after requesting. thus we attempted to obtain ultrasound of the gallbladder today that revealed it was contracted. Please call General Surgeon to schedule an appt. Return to the E.D. for any new or worsening symptoms. No driving while taking the narcotics.
--- NOTE | 2018-08-27 08:11 | US ---
Limited abdominal ultrasound: Multiple real-time images were obtained of the upper right abdomen. Comparison: Prior CT abdomen and pelvis exam of 03/30/17. Liver is echogenic most likely representing fatty infiltration. Right kidney shows no hydronephrosis or mass. Small cyst noted on prior CT study within the right kidney which is not well seen on current exam. Gallbladder is contracted without shadowing gallstones. No biliary duct dilatation is seen. Pancreas is mostly obscured from bowel gas. Visualized portions of the pancreas are within normal limits. Inferior vena cava is patent. Portal vein shows normal hepatopedal flow. Impression: 1. Echogenic liver compatible with fatty infiltration. 2. Contracted gallbladder with no biliary duct dilatation or shadowing gallstones. 3. Poorly seen pancreas. Diagnostic code #2 I agree with preliminary report from [facility], finalized on 08/26/18, 6:47 PM Central Time
== END 2018-08-26 17:55 | disposition home or self-care (01) ==
LOC: JD.ED 14:44
DX: K80.50 Calculus of bile duct without cholangitis or cholecystitis without obstruction (principal); K29.00 Acute gastritis without bleeding; K21.9 Gastro-esophageal reflux disease without esophagitis; Z79.899 Other long term (current) drug therapy
CPT/HCPCS: 36415; 76705; 80053; 81001; 81025; 82248; 82977; 83690; 84484; 85007; 85027; 86140; 93005; 96361; 96374; 96375; 99284; A9270; C9113; J1170; J2405; J7040